=== PATIENT | female | born 1960 | race Caucasian/White ===

== ENCOUNTER 2021-08-10 03:39 | Inpatient (IN) | payer MEDICAID ==
[~2021-08-10] VITALS: Ht 162.6 cm; Wt 84.0 kg
[~2021-08-10 03:39] MED LIST: ALBUAER3 IN
[2021-08-10] MEDS ORDERED: LIDOCAINE VISCOUS 2% 15ML UD PO ONE (04:15)
[2021-08-10] MEDS ORDERED: ALUM & MAG HYDROX-SIMETH LIQ(MAALOX) 30 ML PO ONE (04:15)
[2021-08-10] MEDS ORDERED: SODIUM CHLORIDE 0.9% 1,000 ML IV ONE (04:15)
[2021-08-10] MEDS ORDERED: DONNATAL 5ml ORAL Elix (BELLADONNA ALK-PHENOBARB) PO ONE (04:15)
[2021-08-10] MEDS ORDERED: ONDANSETRON HCL 4 MG/2 ML VIAL IV ONE (04:15)
[2021-08-10] MEDS ORDERED: IOHEXOL 300 MG/ML 100ML BOTTLE IJ ONE ×2 (04:33→08:10)
[2021-08-10 04:44] LABS: Basophils # (auto) 0.1 10 ^3/uL (0-0.2); Basophils % (auto) 0.7 % (0.0-2.0); Eosinophils # (auto) 0.7 10 ^3/uL (0-0.8); Hematocrit 42.4 % (36.0-46.0); Hemoglobin 14.9 g/dL (12.2-16.2); Lymphocytes # (auto) 2.2 10 ^3/uL (0.4-5.4); Lymphocytes % (auto) 29.5 % (10.0-50.0); Mean Corpuscular Hemoglobin 30.7 pg (28.0-32.0); Mean Corpuscular Volume 87.7 fL (80.0-100.0); Monocytes # (auto) 0.4 10 ^3/uL (0-1.3); Monocytes % (auto) 5.3 % (0.0-12.0); Neutrophils # (auto) 4.2 10 ^3/uL (1.6-8.6); Neutrophils % (auto) 55.5 % (37.0-80.0); Nucleated Red Blood Cells % 0.2 %; Red Blood Cells 4.84 10^6/uL (4.0-5.20); Red Cell Distribution Width 13.2 % (11.8-14.3); White Blood Cell 7.5 10^3/uL (4.4-10.8)
[2021-08-10 06:59] LABS: Urine Bacteria FEW /hpf (None Seen); Urine Blood Negative /uL (Negative); Urine Hyaline Cast FEW /lpf (0 - 2); Urine Specific Gravity 1.012 (1.001-1.035); Urine WBC 2 /hpf (0 - 5)
[2021-08-10] MEDS ORDERED: KETOROLAC TROMETH 30 MG/ML 1ML VIAL IV ONE (07:45)
[2021-08-10 08:06] LABS: Albumin 3.4 g/dL (3.4-5.0); Calcium 8.4 mg/dL (8.5-10.1)
[2021-08-10 08:11] LABS: Bilirubin, Total 0.2 mg/dL (0.2-1.0); Total Protein 7.1 g/dL (6.4-8.2)
[2021-08-10] MEDS ORDERED: ONDANSETRON HCL 4 MG/2 ML VIAL IV PRN (12:30)
[2021-08-10] MEDS ORDERED: HYDROcodone-ACET 5/325MG TAB PO PRN (12:30)
[2021-08-10] MEDS ORDERED: ACETAMINOPHEN 325 MG TAB PO PRN (12:30)
[2021-08-10] MEDS ORDERED: NITROGLYCERIN 0.4 MG SL TAB SL PRN (12:30)
[2021-08-10] MEDS: SODIUM CHLORIDE 0.9% 1,000 ML IV SCH ×2 (12:35→21:28)
[2021-08-10 16:00] VITALS: BP 147/87
[2021-08-10 17:03] LABS: INR 0.99 (0.9-1.15)
[2021-08-10 22:00] VITALS: BP 145/67
[2021-08-11] VITALS (25 sets, daily range): BP systolic 109–161; BP diastolic 55–85
[2021-08-11 05:42] LABS: Basophils # (auto) 0 10 ^3/uL (0-0.2); Basophils % (auto) 0.5 % (0.0-2.0); Eosinophils # (auto) 0.4 10 ^3/uL (0-0.8); Eosinophils % (auto) 7.3 % (0.0-7.0); Hematocrit 41.4 % (36.0-46.0); Hemoglobin 14.3 g/dL (12.2-16.2); Lymphocytes # (auto) 1.9 10 ^3/uL (0.4-5.4); Lymphocytes % (auto) 33.3 % (10.0-50.0); Mean Corpuscular Hemoglobin 30.5 pg (28.0-32.0); Mean Corpuscular Hgb Conc. 34.6 g/dL (32.0-36.0); Monocytes # (auto) 0.3 10 ^3/uL (0-1.3); Neutrophils # (auto) 3.1 10 ^3/uL (1.6-8.6); Neutrophils % (auto) 52.9 % (37.0-80.0); Nucleated Red Blood Cells % 0.2 %; Red Cell Distribution Width 13.1 % (11.8-14.3); White Blood Cell 5.8 10^3/uL (4.4-10.8)
[2021-08-11 05:52] LABS: Potassium 4.3 mmol/L (3.5-5.1)
[2021-08-11 05:58] LABS: Albumin 3.1 g/dL (3.4-5.0); BUN/Creatinine Ratio 13.3; Calcium 8.2 mg/dL (8.5-10.1)
[2021-08-11 06:00] LABS: Bilirubin, Total 0.5 mg/dL (0.2-1.0); Total Protein 6.3 g/dL (6.4-8.2)
[2021-08-11] MEDS ORDERED: BUPIVACAINE W/ EPINEPH 0.25% INJ 50ML MDV ONE (07:46)
[2021-08-11] MEDS ORDERED: SUCCINYLCHOLINE CHLORIDE 20 MG/ML 10ML VIAL IV ONE (08:14)
[2021-08-11] MEDS ORDERED: ceFAZolin 1GM/50ML 100 ML IV ONE (08:15)
[2021-08-11] MEDS ORDERED: PROPOFOL 10 MG/ML 20 ML IV ONE (08:15)
[2021-08-11] MEDS ORDERED: fentaNYL CITRATE 100 MCG/2 ML VL ONE (08:16)
[2021-08-11] MEDS ORDERED: MIDAZOLAM HCL 2MG/2ML 2ml VIAL (1mg/ml) ONE (08:16)
[2021-08-11] MEDS ORDERED: ROCURONIUM 10MG/ML 10ML VIAL IV ONE (08:19)
[2021-08-11] MEDS: SODIUM CHLORIDE 0.9% 1,000 ML IV SCH (08:30)
[2021-08-11] MEDS ORDERED: LABETALOL HCL 5 MG/ML ML 20ML VIAL IV ONE (09:09)
[2021-08-11] MEDS ORDERED: GLYCOPYRROLATE 0.2 MG/ML 1ML VIAL ONE (09:50)
[2021-08-11] MEDS ORDERED: NEOSTIGMINE 1 MG/ML INJ (10mg/10ML VIAL) ONE (09:50)
[2021-08-11] MEDS ORDERED: ONDANSETRON HCL 4 MG/2 ML VIAL IV PRN (10:00)
[2021-08-11] MEDS ORDERED: ENOXAPARIN SOD 40 MG/0.4 ML SYRINGE SC SCH (10:00)
[2021-08-11] MEDS ORDERED: HYDROmorphone HCL 2 MG/ML VL/or syr IV PRN (10:30)
[2021-08-11] MEDS: D5W/SOD CHL 0.45%/KCL 20MEQ 1,000 ML IV SCH ×2 (11:10→18:20)
[2021-08-11] MEDS: PANTOPRAZOLE 40 MG/10 ML VIAL INJ IV SCH (11:10)
[2021-08-11] MEDS: MORPHINE SULFATE 4 MG/ML SYR/VIAL IV PRN ×2 (11:25→20:27)
[2021-08-11 11:37] LABS: Basophils # (auto) 0 10 ^3/uL (0-0.2); Basophils % (auto) 0.4 % (0.0-2.0); Eosinophils # (auto) 0.3 10 ^3/uL (0-0.8); Hematocrit 40.8 % (36.0-46.0); Hemoglobin 13.9 g/dL (12.2-16.2); Lymphocytes # (auto) 1.3 10 ^3/uL (0.4-5.4); Mean Corpuscular Hemoglobin 30.2 pg (28.0-32.0); Mean Corpuscular Hgb Conc. 34.2 g/dL (32.0-36.0); Mean Corpuscular Volume 88.3 fL (80.0-100.0); Monocytes # (auto) 0.4 10 ^3/uL (0-1.3); Monocytes % (auto) 3.7 % (0.0-12.0); Neutrophils # (auto) 7.5 10 ^3/uL (1.6-8.6); Neutrophils % (auto) 78.9 % (37.0-80.0); Nucleated Red Blood Cells % 0.1 %; Red Blood Cells 4.62 10^6/uL (4.0-5.20); Red Cell Distribution Width 13.3 % (11.8-14.3); White Blood Cell 9.5 10^3/uL (4.4-10.8)
[2021-08-11] MEDS ORDERED: ALBUTEROL SULF 2.5 MG/0.5ML(0.5%) NEB SOLN NEB PRN (13:30)
[2021-08-11] MEDS ORDERED: IPRATROPIUM BROM 0.5 MG/2.5ML INH SOL NEB PRN (13:30)
[2021-08-11] MEDS ORDERED: ALBUTEROL SULF 2.5 MG/0.5ML(0.5%) NEB SOLN ONE (13:40)
[2021-08-11] MEDS ORDERED: IPRATROPIUM BROM 0.5 MG/2.5ML INH SOL ONE (13:40)
[2021-08-11] MEDS: ALBUTEROL SULF 2.5 MG/0.5ML(0.5%) NEB SOLN NEB SCH ×3 (14:00→22:00)
[2021-08-11] MEDS: IPRATROPIUM BROM 0.5 MG/2.5ML INH SOL NEB SCH ×3 (14:00→22:00)
[2021-08-11] MEDS ORDERED: cefTRIAXone 1GM/50ML D5W 50 ML IV ONE (17:00)
[2021-08-12] VITALS (11 sets, daily range): BP systolic 111–141; BP diastolic 50–78
[2021-08-12] MEDS: MORPHINE SULFATE 4 MG/ML SYR/VIAL IV PRN ×2 (01:08→07:02)
[2021-08-12] MEDS: D5W/SOD CHL 0.45%/KCL 20MEQ 1,000 ML IV SCH ×3 (03:26→19:20)
[2021-08-12 04:56] LABS: Basophils # (auto) 0 10 ^3/uL (0-0.2); Basophils % (auto) 0.4 % (0.0-2.0); Eosinophils # (auto) 0.3 10 ^3/uL (0-0.8); Eosinophils % (auto) 4.2 % (0.0-7.0); Hematocrit 39.7 % (36.0-46.0); Hemoglobin 13.7 g/dL (12.2-16.2); Lymphocytes # (auto) 1.4 10 ^3/uL (0.4-5.4); Lymphocytes % (auto) 19.1 % (10.0-50.0); Mean Corpuscular Hemoglobin 30.6 pg (28.0-32.0); Mean Corpuscular Hgb Conc. 34.6 g/dL (32.0-36.0); Mean Corpuscular Volume 88.4 fL (80.0-100.0); Monocytes # (auto) 0.5 10 ^3/uL (0-1.3); Monocytes % (auto) 6.8 % (0.0-12.0); Neutrophils # (auto) 5.2 10 ^3/uL (1.6-8.6); Neutrophils % (auto) 69.5 % (37.0-80.0); Red Blood Cells 4.49 10^6/uL (4.0-5.20); Red Cell Distribution Width 13.1 % (11.8-14.3); White Blood Cell 7.6 10^3/uL (4.4-10.8)
[2021-08-12 05:13] LABS: Albumin 2.9 g/dL (3.4-5.0); BUN/Creatinine Ratio 8.3; Calcium 8.3 mg/dL (8.5-10.1); Magnesium 2.4 mg/dL (1.6-2.6); Potassium 5.1 mmol/L (3.5-5.1)
[2021-08-12 05:15] LABS: Bilirubin, Total 0.4 mg/dL (0.2-1.0); Total Protein 6.2 g/dL (6.4-8.2)
[2021-08-12] MEDS: IPRATROPIUM BROM 0.5 MG/2.5ML INH SOL NEB SCH ×6 (06:00→22:00)
[2021-08-12] MEDS: ALBUTEROL SULF 2.5 MG/0.5ML(0.5%) NEB SOLN NEB SCH ×6 (06:00→19:24)
[2021-08-12] MEDS: cefTRIAXone 1GM/50ML D5W 50 ML IV SCH (08:37)
[2021-08-12] MEDS: PANTOPRAZOLE 40 MG/10 ML VIAL INJ IV SCH (08:37)
[2021-08-12] MEDS ORDERED: ACETAMINOPHEN 325 MG TAB PO PRN (11:45)
[2021-08-12] MEDS: HYDROcodone-ACET 5/325MG TAB PO PRN ×2 (11:47→19:05)
[2021-08-12] MEDS ORDERED: ALPRAZolam 0.25 MG TAB PO ONE (17:30)
[2021-08-13] VITALS (7 sets, daily range): BP systolic 120–144; BP diastolic 64–78
[2021-08-13] MEDS: D5W/SOD CHL 0.45%/KCL 20MEQ 1,000 ML IV SCH (03:40)
[2021-08-13] MEDS: IPRATROPIUM BROM 0.5 MG/2.5ML INH SOL NEB SCH ×2 (05:26→09:23)
[2021-08-13] MEDS: ALBUTEROL SULF 2.5 MG/0.5ML(0.5%) NEB SOLN NEB SCH ×2 (05:26→09:23)
[2021-08-13] MEDS: HYDROcodone-ACET 5/325MG TAB PO PRN ×2 (05:58→19:56)
[2021-08-13] MEDS: PANTOPRAZOLE 40 MG/10 ML VIAL INJ IV SCH (08:54)
[2021-08-13] MEDS: cefTRIAXone 1GM/50ML D5W 50 ML IV SCH (08:54)
[2021-08-13] MEDS ORDERED: ALBUTEROL SULF 2.5 MG/0.5ML(0.5%) NEB SOLN NEB PRN (11:30)
[2021-08-13] MEDS ORDERED: IPRATROPIUM BROM 0.5 MG/2.5ML INH SOL NEB PRN (11:30)
[2021-08-13] MEDS ORDERED: ALPRAZolam 0.25 MG TAB PO PRN (14:30)
[2021-08-14] VITALS: BP 141/75
[2021-08-14 04:00] VITALS: BP 135/75
[2021-08-14 05:45] LABS: Potassium 4.5 mmol/L (3.5-5.1)
[2021-08-14 05:59] LABS: Alanine Aminotransferase 41 U/L (13-56); Albumin 2.9 g/dL (3.4-5.0); Alkaline Phosphatase 97 U/L (45-117); Aspartate Aminotransferase 27 U/L (15-37); Bilirubin, Direct < 0.1 mg/dL (0-0.2); Bilirubin, Total 0.4 mg/dL (0.2-1.0); Magnesium 2.1 mg/dL (1.6-2.6); Total Protein 6.5 g/dL (6.4-8.2)
[2021-08-14 09:00] VITALS: BP 144/86
[2021-08-14] MEDS: PANTOPRAZOLE 40 MG/10 ML VIAL INJ IV SCH (09:11)
[2021-08-14] MEDS: HYDROcodone-ACET 5/325MG TAB PO PRN (09:11)
[2021-08-14] MEDS: cefTRIAXone 1GM/50ML D5W 50 ML IV SCH (09:12)
[2021-08-14] MEDS ORDERED: LEVO500T31 PO (11:24)
== END 2021-08-14 16:55 | disposition home or self-care (01) | DRG 263 ==
LOC: ER 03:39 → OVERFLOW 12:20 → WEST WING 15:40 → ICU CENTRL 08-11 10:49 → DOU IN ICU 08-14 01:43 → TELE-WESTW 08-14 07:30
PROVIDERS: ADMIT Internal Medicine; ATTEND Internal Medicine
PROC: 0FT44ZZ Resection of Gallbladder, Percutaneous Endoscopic Approach (ICD-10-PCS; principal; 2021-08-11 08:26)
DX: K80.00 Calculus of gallbladder with acute cholecystitis without obstruction (principal); J96.00 Acute respiratory failure, unspecified whether with hypoxia or hypercapnia; K76.89 Other specified diseases of liver; E66.01 Morbid (severe) obesity due to excess calories; N39.0 Urinary tract infection, site not specified; G25.0 Essential tremor; F41.9 Anxiety disorder, unspecified; J44.9 Chronic obstructive pulmonary disease, unspecified; Z20.822 Contact with and (suspected) exposure to COVID-19; Z83.3 Family history of diabetes mellitus; Z68.31 Body mass index [BMI] 31.0-31.9, adult
CPT/HCPCS: 36415; 71045; 74177; 76705; 78226; 80053; 80076; 81001; 83690; 83735; 84132; 84484; 85025; 85610; 85730; 86850; 86900; 86901; 87081; 93005; 94640; 96361; 96374; 96375; C9113; G0378; J0330; J0690; J0696; J1885; J2250; J2405; J2704

== ENCOUNTER 2022-06-26 11:41 | Inpatient (IN) | payer MEDICAID ==
[~2022-06-26] VITALS: Ht 165.1 cm; Wt 90.0 kg
[~2022-06-26 11:41] MED LIST changes: +LEVO500T31 PO
[2022-06-26] MEDS ORDERED: DexAMETHasone SOD PHOS 10MG/1ML VIAL INJ IV ONE (13:30)
[2022-06-26] MEDS ORDERED: ALBUTEROL SULF 2.5 MG/0.5ML(0.5%) NEB SOLN NEB ONE (13:30)
[2022-06-26] MEDS ORDERED: IPRATROPIUM BROM 0.5 MG/2.5ML INH SOL NEB ONE (13:30)
[2022-06-26] MEDS ORDERED: ALBUTEROL MEDNEB 2.5 mg/3ml NEB ONE ×3 (13:44→22:10)
[2022-06-26 13:55] LABS: Basophils # (auto) 0.1 10 ^3/uL (0-0.2); Basophils % (auto) 0.6 % (0.0-2.0); Eosinophils # (auto) 0.9 10 ^3/uL (0-0.8); Eosinophils % (auto) 8.8 % (0.0-7.0); Hematocrit 46.1 % (36.0-46.0); Hemoglobin 15.7 g/dL (12.2-16.2); Lymphocytes # (auto) 2.2 10 ^3/uL (0.4-5.4); Mean Corpuscular Hemoglobin 30.2 pg (28.0-32.0); Mean Corpuscular Volume 88.8 fL (80.0-100.0); Monocytes # (auto) 0.6 10 ^3/uL (0-1.3); Monocytes % (auto) 6.1 % (0.0-12.0); Neutrophils # (auto) 6.7 10 ^3/uL (1.6-8.6); Neutrophils % (auto) 63.5 % (37.0-80.0); Nucleated Red Blood Cells % 0.1 %; Red Blood Cells 5.19 10^6/uL (4.0-5.20); Red Cell Distribution Width 13.2 % (11.8-14.3); White Blood Cell 10.6 10^3/uL (4.4-10.8)
[2022-06-26 14:11] LABS: Albumin 3.6 g/dL (3.4-5.0); BUN/Creatinine Ratio 11.6; Calcium 9.2 mg/dL (8.5-10.1); Potassium 4.7 mmol/L (3.5-5.1)
[2022-06-26 14:14] LABS: Bilirubin, Total 0.3 mg/dL (0.2-1.0); Magnesium 2.4 mg/dL (1.6-2.6); Total Protein 7.1 g/dL (6.4-8.2)
[2022-06-26] MEDS: MAGNESIUM SULFATE 1GM/100ML 100 ML IV SCH ×2 (14:30→16:01)
[2022-06-26] MEDS ORDERED: DOXYCYCLINE 100MG/250ML 250 ML IV ONE (16:15)
[2022-06-26] MEDS ORDERED: ALBUTEROL SULF 2.5 MG/0.5ML(0.5%) NEB SOLN NEB PRN (16:30)
[2022-06-26] MEDS ORDERED: PANTOPRAZOLE 40 MG/10 ML VIAL INJ IV ONE (16:45)
[2022-06-26 17:03] LABS: Cholesterol 219 mg/dL (< 200); HDL Cholesterol 43 mg/dL (40-59); LDL Cholesterol 148 mg/dL (< 100); Triglycerides 322 mg/dL (< 150)
[2022-06-26] MEDS: SODIUM CHLORIDE 0.9% 1,000 ML IV SCH (17:50)
[2022-06-26] MEDS: ALBUTEROL SULF 2.5 MG/0.5ML(0.5%) NEB SOLN NEB SCH ×3 (18:29→22:13)
[2022-06-26] MEDS: IPRATROPIUM BROM 0.5 MG/2.5ML INH SOL NEB SCH ×3 (18:29→22:12)
[2022-06-26 19:00] VITALS: BP 121/58
[2022-06-26 22:00] VITALS: BP 159/77
[2022-06-26 22:06] VITALS: BP 159/77
[2022-06-26] MEDS ORDERED: MONT-8 PO (22:17)
[2022-06-26] MEDS ORDERED: SIMV10TA84 PO (22:17)
[2022-06-26] MEDS: methylPREDNISolone SOD SUCC 125 MG/2 ML VL IV SCH (22:19)
[2022-06-26] MEDS ORDERED: ALBU0.084 NEB (22:29)
[2022-06-27] MEDS: ALBUTEROL SULF 2.5 MG/0.5ML(0.5%) NEB SOLN NEB SCH ×8 (02:00→22:00)
[2022-06-27] MEDS: IPRATROPIUM BROM 0.5 MG/2.5ML INH SOL NEB SCH ×8 (02:00→22:00)
[2022-06-27] MEDS: DOXYCYCLINE 100MG/250ML 250 ML IV SCH ×2 (04:16→16:26)
[2022-06-27 05:00] VITALS: BP 136/72
[2022-06-27] MEDS ORDERED: ALBUTEROL MEDNEB 2.5 mg/3ml NEB ONE ×5 (05:43→22:21)
[2022-06-27 06:21] LABS: Basophils # (auto) 0 10 ^3/uL (0-0.2); Eosinophils # (auto) 0 10 ^3/uL (0-0.8); Hematocrit 46.9 % (36.0-46.0); Hemoglobin 15.7 g/dL (12.2-16.2); Lymphocytes # (auto) 1.4 10 ^3/uL (0.4-5.4); Lymphocytes % (auto) 11.4 % (10.0-50.0); Mean Corpuscular Hemoglobin 29.9 pg (28.0-32.0); Mean Corpuscular Hgb Conc. 33.4 g/dL (32.0-36.0); Mean Corpuscular Volume 89.4 fL (80.0-100.0); Monocytes # (auto) 0.1 10 ^3/uL (0-1.3); Neutrophils # (auto) 10.4 10 ^3/uL (1.6-8.6); Neutrophils % (auto) 87.6 % (37.0-80.0); Red Blood Cells 5.25 10^6/uL (4.0-5.20); Red Cell Distribution Width 13.4 % (11.8-14.3); White Blood Cell 11.9 10^3/uL (4.4-10.8)
[2022-06-27 06:35] LABS: Potassium 4.5 mmol/L (3.5-5.1)
[2022-06-27 06:41] LABS: Albumin 3.5 g/dL (3.4-5.0); BUN/Creatinine Ratio 10.1; Calcium 9.6 mg/dL (8.5-10.1)
[2022-06-27 06:43] LABS: Bilirubin, Total 0.3 mg/dL (0.2-1.0); Total Protein 7.7 g/dL (6.4-8.2)
[2022-06-27 08:00] VITALS: BP 148/74
[2022-06-27] MEDS: SODIUM CHLORIDE 0.9% 1,000 ML IV SCH (09:10)
[2022-06-27] MEDS: ENOXAPARIN SOD 40 MG/0.4 ML SYRINGE SC SCH (09:21)
[2022-06-27] MEDS: PANTOPRAZOLE 40 MG/10 ML VIAL INJ IV SCH (09:21)
[2022-06-27] MEDS: methylPREDNISolone SOD SUCC 125 MG/2 ML VL IV SCH ×2 (09:21→21:46)
[2022-06-27] MEDS ORDERED: ACETAMINOPHEN 325 MG TAB PO PRN (11:15)
[2022-06-27 13:00] VITALS: BP 139/82
[2022-06-27] MEDS: HYDROcodone-ACET 5/325MG TAB PO PRN ×2 (14:54→19:34)
[2022-06-27 17:00] VITALS: BP 153/80
[2022-06-27 20:00] VITALS: BP 149/85
[2022-06-27 22:00] VITALS: BP 149/85
[2022-06-28] VITALS (7 sets, daily range): BP systolic 119–150; BP diastolic 64–94
[2022-06-28] MEDS: IPRATROPIUM BROM 0.5 MG/2.5ML INH SOL NEB SCH ×6 (02:00→21:38)
[2022-06-28] MEDS: ALBUTEROL SULF 2.5 MG/0.5ML(0.5%) NEB SOLN NEB SCH ×6 (02:00→21:38)
[2022-06-28] MEDS: SODIUM CHLORIDE 0.9% 1,000 ML IV SCH ×2 (04:06→11:01)
[2022-06-28] MEDS: DOXYCYCLINE 100MG/250ML 250 ML IV SCH ×2 (04:07→16:28)
[2022-06-28] MEDS ORDERED: ALBUTEROL MEDNEB 2.5 mg/3ml NEB ONE ×5 (06:09→21:36)
[2022-06-28] MEDS: PANTOPRAZOLE 40 MG/10 ML VIAL INJ IV SCH (11:02)
[2022-06-28] MEDS: ENOXAPARIN SOD 40 MG/0.4 ML SYRINGE SC SCH (11:02)
[2022-06-28] MEDS: methylPREDNISolone SOD SUCC 125 MG/2 ML VL IV SCH ×2 (11:02→21:33)
[2022-06-29] MEDS ORDERED: ALBUTEROL MEDNEB 2.5 mg/3ml NEB ONE ×5 (02:04→17:50)
[2022-06-29] MEDS: ALBUTEROL SULF 2.5 MG/0.5ML(0.5%) NEB SOLN NEB SCH ×5 (02:08→14:14)
[2022-06-29] MEDS: IPRATROPIUM BROM 0.5 MG/2.5ML INH SOL NEB SCH ×5 (02:08→14:14)
[2022-06-29] MEDS: DOXYCYCLINE 100MG/250ML 250 ML IV SCH (04:56)
[2022-06-29] MEDS: HYDROcodone-ACET 5/325MG TAB PO PRN ×2 (04:56→11:08)
[2022-06-29 05:00] VITALS: BP 170/101
[2022-06-29] MEDS ORDERED: hydrALAZINE HCL 20 MG/ML VL IV PRN (05:15)
[2022-06-29] MEDS ORDERED: MORPHINE SULFATE INJ 2 MG/ml SYRG IV PRN (05:15)
[2022-06-29 07:45] LABS: Albumin 3.4 g/dL (3.4-5.0); Calcium 8.8 mg/dL (8.5-10.1); Potassium 4.9 mmol/L (3.5-5.1)
[2022-06-29 07:48] LABS: BUN/Creatinine Ratio 19.8; Bilirubin, Total 0.4 mg/dL (0.2-1.0)
[2022-06-29 08:08] LABS: INR 0.95 (0.9-1.15)
[2022-06-29 09:29] VITALS: BP 143/91
[2022-06-29] MEDS ORDERED: methylPREDNISolone SOD SUCC 125 MG/2 ML VL IV SCH (10:00)
[2022-06-29] MEDS ORDERED: hydrALAZINE HCL 20 MG/ML VL IV ONE (10:30)
[2022-06-29] MEDS: ENOXAPARIN SOD 40 MG/0.4 ML SYRINGE SC SCH (11:06)
[2022-06-29] MEDS: PANTOPRAZOLE 40 MG/10 ML VIAL INJ IV SCH (11:07)
[2022-06-29] MEDS: SODIUM CHLORIDE 0.9% 1,000 ML IV SCH (11:08)
[2022-06-29 13:01] VITALS: BP 142/84
[2022-06-29] MEDS ORDERED: AZIT250T8 PO (13:24)
== END 2022-06-29 17:30 | disposition home or self-care (01) | DRG 140 ==
LOC: ER 11:41 → EDBD 11:41 → OVERFLOW 16:37 → CENTRAL 21:32
PROVIDERS: ADMIT Nurse Practitioner Family; ATTEND Internal Medicine
DX: J44.1 Chronic obstructive pulmonary disease with (acute) exacerbation (principal); J96.01 Acute respiratory failure with hypoxia; J45.901 Unspecified asthma with (acute) exacerbation; E66.01 Morbid (severe) obesity due to excess calories; Z20.822 Contact with and (suspected) exposure to COVID-19; Z83.3 Family history of diabetes mellitus; Z68.33 Body mass index [BMI] 33.0-33.9, adult
CPT/HCPCS: 36415; 71045; 80053; 80061; 83036; 83615; 83735; 83880; 84443; 84484; 85025; 85379; 85610; 87426; 93005; 94640; 96365; 96375; 99291; C9113; G0378; J1100; J3490

== ENCOUNTER 2024-07-31 16:09 | Inpatient (IN) | payer MEDICAID ==
[~2024-07-31] VITALS: Ht 160 cm; Wt 84.3 kg
[~2024-07-31 16:09] MED LIST changes: +ALBU0.084 NEB; +AZIT-185 PO; -LEVO500T31 PO; +MONT-8 PO; +SIMV10TA20 PO
--- NOTE | 2024-07-31 16:20 | ED.PDOC ---
SOB-HPI HPI Comments 64-year-old female brought in by EMS presents with a chief complaint of SOB x 1 day with associated cough. Patient states that she began to feel SOB starting last night when she began coughing spontaneously. Patient denies any sick contacts at home. Patient was sating at 91% on room air and took 2 breathing treatments at home and states that she had no relief. Patient was placed on dual nebulizer treatment by EMS and is now sating at 98%. Patient is afebrile at 98.0F orally. Patient denies any chest pain, headache, abdomen pain, nausea, vomiting, or diarrhea. No other symptoms or modifying factors present at this time. PMHx: COPD, Asthma, HLD, Thyroid Disease, PSHx: Denies HPI: Poor Historian. REVIEW OF SYSTEMS: CONSTITUTIONAL: Denies acute: fever, diaphoresis, chills, generalized weakness. HEAD: Denies acute: headache, photophobia Eyes: Denies acute: Double vision, vision loss, eye pain, eye discharge. EARS: Denies acute: tinnitus, hearing loss, ear discharge, ear pain, THROAT: Denies acute: sore throat, swelling, difficulty swallowing , pain with swallowin g, change in voice. NECK: Denies acute: neck pain, neck swelling, stiff neck. HEART: Denies acute : chest pain, palpitations, LUNGS: Denies acute: wheezing, cough, hemoptysis ABDOMEN: Denies acute: abdominal pain, Nausea, Vomiting, diarrhea, melena , hematemesis, hematochezia SKIN: Denies acute: rash, redness, lesions, itchiness. EXTREMITIES: Denies acute: calf pain, numbness, tingling, weakness, Denies acute: Low back pain. Neuro: Denies acute: focal neurological deficit, motor or sensory focal neurological deficit, tremors, seizure like activity, confusion, dizziness, change in mental status, loss of bowel or bladder function, cauda equina like symptoms. : Denies acute: dysuria, hematuria, flank pain, increase in urinary frequency. PSYCH: Denies acute: hallucination, suicidal ideation, homicidal ideation. FEMALE: Denies acute: abnormal vaginal bleeding, foul odor, unusual discharge. PHYSICAL EXAM: General: no acute distress, awake and alert. Head: normocephalic, atraumatic. Neck: supple, trachea is midline, no swelling. Throat: Normal phonation. Eyes:, no erythema, no purulent discharge, no proptosis, no icterus. Heart: regular tachycardia no significant murmur appreciated. Lungs: mild to mod apparent respiratory distress, Able to speak in full sentences. No wheezing, no rhonchi, no crackles. No stridors Clear to auscultation bilaterally. Abdomen: non tender to palpation, non distended, soft, no guarding, no rebound, + bowel sounds. obese Neuro: Awake, Alert, oriented to name, self, situation, follows commands GCS=15. Speech is normal. Skin: no petechia, no purpura, no cyanosis, non-pale, not jaundice. Lower extremities: --1/4 b/l - Pitting edema no deformity, no focal swelling, no calf TTP. Makes eye contact. moves all four extremities. Face: no apparent facial droop. ED COURSE: Chief Complaint: Shortness of Breath Time Seen by MD: 16:14 Primary Care Provider: UNKNOWN Reviewed notes: Nurses Notes, Medications, Allergies Information Source: Patient, Emergency Med Personnel Mode of Arrival: EMS Past Medical History PAST MEDICAL HISTORY: Asthma, COPD, High Lipids, Thyroid Surgical History: Denies all surgeries HOUSE MANAGER History: No Pertinent HOUSE MANAGER History Family History Family History: Unknown Social History Smoker: Quit Greater Than 1 Year, Cigarettes Alcohol: Denies ETOH Use Drugs: Denies Drug Use Lives In: Home Was a procedure done? Was a procedure done?: No Differential Dx Differential Diagnosis: Other (DDx include ACS, unstable angina, anxiety, PE, pneumothroax, neoplasm, cardiac ischemia, COPD, asthma, CHF, pleural effusion, tobacco abuse, pneumonia, hypoxia, hypercapnia, anemia., infection/sepsis., pulmonary edema. Asthma, Cardiac tamponade, infection.) X-Ray, Labs, Meds, VS Vital Signs Date Time Temp Pulse Resp B/P (MAP) Pulse Ox O2 Delivery O2 Flow Rate FiO2 07/31/24 18:51 188/102 07/31/24 18:24 171/96 07/31/24 17:31 110 180/103 Facial BiPAP Mask 100 07/31/24 17:24 180/103 07/31/24 17:23 180/103 07/31/24 16:40 98.9 109 28 172/94 (120) 98 98.9 07/31/24 16:40 109 28 98 Simple Mask* 6 50 07/31/24 16:39 107 07/31/24 16:20 22 98 Simple Mask* 6 50 07/31/24 16:16 98.0 115 22 179/69 (105) 98 98.0 Lab Test 07/31/24 18:47 07/31/24 18:17 07/31/24 17:17 07/31/24 17:00 Range/Units Lactic Acid Level 4.3 *H 3.2 *H 0.4-2.0 mmol/L Troponin I High Sensitivity 5 4 </=34 ng/L D-Dimer, Quantitative 0.54 H 0.0-0.49 mg/L FEU Sodium Level 144 136-145 mmol/L Potassium Level 3.8 3.5-5.1 mmol/L Chloride Level 109 H 98-107 mmol/L Carbon Dioxide Level 25 20-31 mmol/L Anion Gap 10 5-15 Blood Urea Nitrogen 8 L 9-23 mg/dL Creatinine 0.91 0.550-1.02 mg/dL Glomerular Filtration Rate Calc 71 >90 mL/min BUN/Creatinine Ratio 8.8 L 10.0-20.0 Serum Glucose 173 H 74-106 mg/dL Calcium Level 9.3 8.7-10.4 mg/dL Magnesium Level 1.9 1.6-2.6 mg/dL Total Bilirubin 0.3 0.2-1.0 mg/dL Aspartate Amino Transferase (AST) 28 13-40 U/L Alanine Aminotransferase (ALT) 32 7-40 U/L Alkaline Phosphatase 118 H 46-116 U/L B-Type Natriuretic Peptide 44.65 0-100 pg/mL Total Protein 6.9 5.7-8.2 g/dL Albumin 4.4 3.2-4.8 g/dL Triglycerides Level 327 H < 150 mg/dL Cholesterol Level 189 < 200 mg/dL LDL Cholesterol 115 H < 100 mg/dL HDL Cholesterol 42 40-59 mg/dL Thyroid Stimulating Hormone (TSH) 5.15 H 0.55-4.78 uIU/mL Influenza Type A Antigen Negative Negative Influenza Type B Antigen Negative Negative SARS-CoV-2 Antigen (Rapid) Negative NEGATIVE Test 07/31/24 16:29 07/31/24 16:19 07/30/24 05:29 Range/Units Urine Color Colorless Yellow Urine Clarity Clear Clear Urine pH 5.5 5.0-9.0 Urine Specific [place] 1.009 1.001-1.035 Urine Protein Negative Negative Urine Ketones Negative Negative Urine Blood Negative Negative /uL Urine Nitrite Negative Negative Urine Bilirubin Negative Negative Urine Urobilinogen Normal Negative mg/dL Urine Leukocyte Esterase Negative Negative /uL Urine RBC <1 0 - 4 /hpf Urine Microscopic WBC < 1 0-5 /HPF Urine Squamous Epithelial Cells Few <5 /hpf Urine Bacteria None seen None Seen /hpf Urine Glucose Normal Normal mg/dL White Blood Count 12.8 H 4.4-10.8 10^3/uL Red Blood Count 4.96 4.0-5.20 10^6/uL Hemoglobin 14.5 12.2-16.2 g/dL Hematocrit 43.4 36.0-46.0 % Mean Corpuscular Volume 87.5 80.0-100.0 fL Mean Corpuscular Hemoglobin 29.2 28.0-32.0 pg Mean Corpuscular Hemoglobin Concent 33.4 32.0-36.0 g/dL Red Cell Distribution Width 13.2 11.8-14.3 % Platelet Count 271 140-450 10^3/uL Mean Platelet Volume 7.7 6.9-10.8 fL Neutrophils (%) (Auto) 76.9 37.0-80.0 % Lymphocytes (%) (Auto) 13.2 10.0-50.0 % Monocytes (%) (Auto) 6.2 0.0-12.0 % Eosinophils (%) (Auto) 3.2 0.0-7.0 % Basophils (%) (Auto) 0.5 0.0-2.0 % Neutrophils # (Auto) 9.8 H 1.6-8.6 10 ^3/uL Lymphocytes # (Auto) 1.7 0.4-5.4 10 ^3/uL Monocytes # (Auto) 0.8 0-1.3 10 ^3/uL Eosinophils # (Auto) 0.4 0-0.8 10 ^3/uL Basophils # (Auto) 0.1 0-0.2 10 ^3/uL Nucleated Red Blood Cells 0.0 % Blood Gas Specimen Type Arterial Blood Gas Sample Site Right radial Blood Gas Patient Temperature 37.0 Arterial Blood Date Drawn [id number] Arterial Blood pH 7.337 L 7.350-7.450 Arterial Blood Partial Pressure CO2 37.2 32.0-45.0 mmHg Arterial Blood Partial Pressure O2 72.6 L 83.0-108.0 mmHg Arterial Blood HCO3 19.5 L 21.0-28.0 mmol/L Arterial Blood Oxygen Saturation 94.6 94.0-98.0 % Arterial Blood Base Excess -5.6 L -2.0-3.0 mmol/L Arterial Blood Oxyhemoglobin 93.3 L 94.0-98.0 % Arterial Blood Carboxyhemoglobin 1.0 0.5-1.5 % Arterial Blood Methemoglobin 0.4 0.0-1.5 % Bruno Test Yes Blood Gas Total Hemoglobin 15.10 12.0-16.0 g/dL Blood Gas Modality Nasal cannula FiO2 % 28.0 Blood Gas Notified Time [id number] Current Medications Medications (Trade) Dose Ordered Sig/Rafi Route Start Time Stop Time Status Last Admin Methylprednisolone Sodium Succinate (Solu Medrol) 125 mg ONCE ONCE IV 07/31/24 16:30 07/31/24 16:31 DC 07/31/24 16:58 Albuterol (Ventolin Medneb) 2.5 mg ONCE ONCE NEB 07/31/24 17:15 07/31/24 17:16 DC 07/31/24 17:15 Ipratropium [place] (Atrovent Medneb) 1 mg ONCE ONCE NEB 07/31/24 17:15 07/31/24 17:16 DC 07/31/24 17:15 Magnesium Sulfate/ Dextrose 100 ml @ 100 mls/hr ONCE ONCE IV 07/31/24 17:15 07/31/24 18:14 DC 07/31/24 17:09 Furosemide (Lasix Injection) 60 mg ONCE ONCE IV 07/31/24 17:15 07/31/24 17:16 DC 07/31/24 17:24 Nitroglycerin (Ntrostat Sublingual) 0.4 mg ONCE ONCE SL 07/31/24 17:15 07/31/24 17:16 DC 07/31/24 17:23 Albuterol (Ventolin Medneb) 2.5 mg Q4HR NEB 07/31/24 18:00 07/31/24 18:03 Ipratropium [place] (Atrovent Medneb) 0.5 mg Q4HR NEB 07/31/24 18:00 07/31/24 18:03 Ceftriaxone Sodium 50 ml @ 100 mls/hr ONCE ONCE IV 07/31/24 18:45 07/31/24 19:14 DC 07/31/24 18:51 Nitroglycerin (Ntrostat Sublingual) 0.4 mg ONCE ONCE SL 07/31/24 19:00 07/31/24 19:01 DC 07/31/24 18:51 PATIENT: SHAMAR BERGCCT: [id number]: [id number] : 1960 LOC: ER ROOM / BED: / AGE / SEX: 64 / F ADM STATUS: REG ER SERVICE [id number] ORDERING PHYSICIAN: RICA KIM DO PROCEDURE(s): CXRP - CHEST PORTABLE REASON: sob ORDER NUMBER(s): [id number], ACCESSION NUMBER(s): [id number] CHEST RADIOGRAPH Indication: sob Technique: Single frontal view of the chest was obtained Comparison: CHEST PORTABLE on DOS: 06/26/22, CXRP on DOS: 06/26/22, CXR1 on DOS: 08/11/21 FINDINGS: Lines and Tubes: None Lungs: No focal consolidation. Slight increased pulmonary vascular congestion w hen compared to 06/26/2022 Pleura: No effusion. No pneumothorax. Cardiomediastinal contours: Unremarkable Bones: No acute osseous abnormality. IMPRESSION: 1. Slight increased pulmonary vascular congestion when compared to 06/25/2022. ATED BY: DARIEN BORREGO Jr., DO DICTATED DATE/TIME: 07/31/241639 SIGNED BY: DARIEN BORREGO Jr., SIGNED DATE/TIME: 07/31/241639 PATIENT: SOLIS BERG ACCT: [id number] UNIT: [id number] : 1960 LOC: ER ROOM / BED: / AGE / SEX: 64 / F ADM STATUS: REG ER SERVICE [id number] ORDERING PHYSICIAN: CRISTIANE DAVID HAND PATTERN MARKER PROCEDURE(s): BLDVT - BiLat Lower DVT REASON: dvt ORDER NUMBER(s): [id number], ACCESSION NUMBER(s): [id number] Bilateral lower extremity venous duplex Clinical History: dvt Comparison: None Technique: Duplex Doppler evaluation of the deep venous systems of both lower extremities from the common femoral veins to the popliteal veins including color Doppler and spectral/pulsed waveform analysis was performed. Findings: RIGHT SIDE: The common femoral vein demonstrates appropriate compressibility and waveform variability. There is compressibility/patency of the great saphenous vein at the proximal thigh. The femoral vein demonstrates appropriate compressibility and waveform variability. The deep femoral vein demonstrates appropriate compressibility and waveform variability. The popliteal vein demonstrates appropriate compressibility and waveform variability. There is normal compressibility at the tibioperoneal trunk. LEFT SIDE: The common femoral vein demonstrates appropriate compressibility and waveform variability. There is compressibility/patency of the great saphenous vein at the proximal thigh. The femoral vein demonstrates appropriate compressibility and waveform variability. The deep femoral vein demonstrates appropriate compressibility and waveform variability. The popliteal vein demonstrates appropriate compressibility and waveform variability. There is normal compressibility at the tibioperoneal trunk. Impression: 1. No right or left femoropopliteal venous thrombosis. ATED BY: HOLLEY DAVIS MD DICTATED DATE/TIME: 07/31/241944 SIGNED BY: HOLLEY DAVIS MD SIGNED DATE/TIME: 07/31/241944 Time of 1ST Reevaluation: 16:44 Reevaluation 1ST: Unchanged Patient Education/Counseling: Diagnosis, Treatment Family Education/Counseling: No Family Present Comments Sepsis protocol initiated. Fluid resuscitation was conservative given the patient's presentation with a suspected pulmonary edema and volume overload. The patient was placed on a BiPAP and given Lasix. Patient presented with the above HPI.------workup was initiated. patient was found with the above mentioned diagnosis. the following medications were ordered: please refer to order lists of meds and tests obtained by myself Dr. Kim. Patient ED course and VS have been stabilized. Patient has been reassessed in the ED and remained in a stable condition. Pertinent incidental findings were discussed with the patient and/or family. Patient/family voices understanding and is agreeable with plan. Patient has been observed in the ED adequate length of time to insure improvement/stability. Escalation of care considered: Consideration of escalation to observation or admission Patient was ADMITTED to the medicine team for further evaluation and treatment of their presentation. All the reports of any imaging studies that were ordered by myself were reviewed by myself. Departure 1 Departure Time of Disposition: 17:05 Impression: Primary Impression: Acute respiratory distress Additional Impression: Pulmonary edema Disposition: ADMITTED INPATIENT Admit to: Tele Condition: Guarded Discharged With: Self Critical Care Note Critical Care Time?: Yes (55 min-critical care time only) I personally scribed for RICA KIM DO ([email or web address]) on 07/31/24 at 16:20. Electronically submitted by Benjamin Lozada ([email or web address]). I personally scribed for RICA KIM DO ([email or web address]) on 07/31/24 at 21:08. Electronically submitted by Benjamin Lozada ([email or web address]). RICA KIM DO Jul 31, 2024 16:20
[2024-07-31 16:40] VITALS: PULSE 109; RESP 28; O2SAT 98
--- NOTE | 2024-07-31 16:42 | DVH ---
CHEST RADIOGRAPH Indication: sob Technique: Single frontal view of the chest was obtained Comparison: CHEST PORTABLE on DOS: 06/26/22, CXRP on DOS: 06/26/22, CXR1 on DOS: 08/11/21 FINDINGS: Lines and Tubes: None Lungs: No focal consolidation. Slight increased pulmonary vascular congestion when compared to 2022 Pleura: No effusion. No pneumothorax. Cardiomediastinal contours: Unremarkable Bones: No acute osseous abnormality. IMPRESSION: 1. Slight increased pulmonary vascular congestion when compared to 06/25/2022.
[2024-07-31] MEDS: methylPREDNISolone SOD SUCC 125 MG/2 ML VL IV ONE (16:58)
[2024-07-31] MEDS: MAGNESIUM SULFATE 1GM/100ML 100 ML IV ONE (17:09)
[2024-07-31] MEDS: ALBUTEROL SULF 2.5 MG/0.5ML(0.5%) NEB SOLN NEB ONE ×2 (17:15→21:49)
[2024-07-31] MEDS: IPRATROPIUM BROM 0.5 MG/2.5ML INH SOL NEB ONE ×2 (17:15→21:49)
[2024-07-31] MEDS: NITROGLYCERIN 0.4 MG SL TAB SL ONE ×2 (17:23→18:51)
[2024-07-31] MEDS: FUROSEMIDE 100 MG/10ML VIAL IV ONE (17:24)
[2024-07-31 17:29] LABS: Basophils # (auto) 0.1 10 ^3/uL (0-0.2); Basophils % (auto) 0.5 % (0.0-2.0); Eosinophils # (auto) 0.4 10 ^3/uL (0-0.8); Eosinophils % (auto) 3.2 % (0.0-7.0); Hematocrit 43.4 % (36.0-46.0); Hemoglobin 14.5 g/dL (12.2-16.2); Lymphocytes # (auto) 1.7 10 ^3/uL (0.4-5.4); Lymphocytes % (auto) 13.2 % (10.0-50.0); Mean Corpuscular Hemoglobin 29.2 pg (28.0-32.0); Mean Corpuscular Hgb Conc. 33.4 g/dL (32.0-36.0); Mean Corpuscular Volume 87.5 fL (80.0-100.0); Monocytes # (auto) 0.8 10 ^3/uL (0-1.3); Monocytes % (auto) 6.2 % (0.0-12.0); Neutrophils # (auto) 9.8 10 ^3/uL (1.6-8.6); Neutrophils % (auto) 76.9 % (37.0-80.0); Platelet Count (auto) 271 10^3/uL (140-450); Red Blood Cells 4.96 10^6/uL (4.0-5.20); Red Cell Distribution Width 13.2 % (11.8-14.3); White Blood Cell 12.8 10^3/uL (4.4-10.8)
[2024-07-31] MEDS ORDERED: ALBUTEROL SULF 2.5 MG/0.5ML(0.5%) NEB SOLN NEB PRN (17:45)
[2024-07-31] MEDS ORDERED: hydrALAZINE HCL 20 MG/ML VL IV PRN (17:45)
[2024-07-31 18:02] LABS: Base Excess -5.6 mmol/L (-2.0-3.0)
[2024-07-31] MEDS: IPRATROPIUM BROM 0.5 MG/2.5ML INH SOL NEB SCH (18:03)
[2024-07-31] MEDS: ALBUTEROL SULF 2.5 MG/0.5ML(0.5%) NEB SOLN NEB SCH (18:03)
[2024-07-31 18:09] LABS: Alanine Aminotransferase 32 U/L (7-40); Albumin 4.4 g/dL (3.2-4.8); Anion Gap 10 (5-15); Aspartate Aminotransferase 28 U/L (13-40); BUN/Creatinine Ratio 8.8 (10.0-20.0); Bilirubin, Total 0.3 mg/dL (0.2-1.0); Calcium 9.3 mg/dL (8.7-10.4); Carbon Dioxide 25 mmol/L (20-31); Magnesium 1.9 mg/dL (1.6-2.6); Potassium 3.8 mmol/L (3.5-5.1); Sodium 144 mmol/L (136-145); Total Protein 6.9 g/dL (5.7-8.2)
[2024-07-31 18:14] LABS: Alkaline Phosphatase 118 U/L (46-116); Blood Urea Nitrogen 8 mg/dL (9-23); Chloride 109 mmol/L (98-107); Glucose 173 mg/dL (74-106)
[2024-07-31] MEDS ORDERED: ONDANSETRON HCL 4 MG/2 ML VIAL IV PRN (18:15)
[2024-07-31] MEDS ORDERED: NITROGLYCERIN 0.4 MG SL TAB SL PRN (18:15)
[2024-07-31] MEDS ORDERED: MORPHINE SULFATE INJ 2 MG/ml SYRG IV PRN (18:15)
[2024-07-31 18:16] LABS: Lactic Acid w/Reflex 3.2 mmol/L (0.4-2.0)
[2024-07-31 18:26] LABS: Cholesterol 189 mg/dL (< 200); HDL Cholesterol 42 mg/dL (40-59); LDL Cholesterol 115 mg/dL (< 100); Triglycerides 327 mg/dL (< 150)
[2024-07-31 18:29] LABS: Urine Bacteria None Seen /hpf (None Seen)
[2024-07-31 18:31] LABS: COVID19 ANTIGEN SOFIA FIA NEGATIVE (NEGATIVE)
[2024-07-31 18:32] LABS: Urine Blood Negative /uL (Negative); Urine Clarity Clear (Clear); Urine Color Colorless (Yellow); Urine Protein, UAD Negative (Negative); Urine Specific Gravity 1.009 (1.001-1.035); Urine Squamous Epithelial Cell FEW /hpf (<5); Urine Urobilinogen Normal (Negative); Urine WBC < 1 /HPF (0-5); Urine pH 5.5 (5.0-9.0)
[2024-07-31 18:32] LABS: Rapid Influenza A Negative (Negative); Rapid Influenza B Negative (Negative)
[2024-07-31] MEDS: cefTRIAXone 1GM/50ML D5W 50 ML IV ONE (18:51)
--- NOTE | 2024-07-31 19:07 | DVHHP2 ---
History of Present Illness Reason for Visit: Acute hypoxic respiratory failure History of Present Illness This is a 64-year-old female with history of asthma presents to ED via EMS with chief complaint of shortness of breath associated with malaise and cough x1 day. The patient took two breathing treatments at home that did not give her any relief. The patient denies any sick contacts at home and has not recently traveled out of the [place] Upon evaluation of patient in ER bed six, patient is currently on BiPAP as her SpO2 was down to 91%. The patient received IV Solu- Medrol, Lasix and DuoNeb treatment with some relief. The patient is concerned about her shortness of breath episode and would like to be further evaluated and treated. The patient will be admitted under hospitalist care to the telemetry unit for continuous monitoring. The patient denies fever, chills, headache, dizziness, palpitation, chest pain, nausea, vomiting, abdominal pain, diarrhea, constipation and other associated symptoms. The plan has been discussed with the patient and primary RN in which all questions concerns have been addressed. Pulmonary: Asthma Past Surgical History: None Family History: None Smoke: No ALCOHOL: none Drugs: None Lives: with Family Domestic Violence: Neg Review of Systems Constitutional: Yes: Weakness Respiratory: Cough, Shortness of breath Allergies: Coded Allergies: NO KNOWN ALLERGIES (Unverified , 07/09/13) Medications Current Medications Medications Dose Ordered Sig/Rafi Route Start Time Stop Time Status Last Admin Dose Admin Albuterol 2.5 mg Q2HPRN PRN NEB 07/31/24 17:45 Albuterol 2.5 mg Q4HR NEB 07/31/24 18:00 07/31/24 18:03 2.5 MG Ipratropium [place] 0.5 mg Q4HR NEB 07/31/24 18:00 07/31/24 18:03 0.5 MG Methylprednisolone Sodium Succinate 40 mg DAILY IV 08/01/24 10:00 Hydralazine HCl 10 mg Q6HP PRN IV 07/31/24 17:45 Furosemide 20 mg DAILY IV 08/01/24 10:00 Exam Vital Signs Vital Signs Date Time Temp Pulse Resp B/P (MAP) Pulse Ox O2 Delivery O2 Flow Rate FiO2 07/31/24 17:31 110 180/103 Facial BiPAP Mask 100 07/31/24 16:20 22 98 6 07/31/24 16:16 98.0 98.0 General Appearance: Alert, Oriented X3, Cooperative, mild distress HEENT: Atraumatic, PERRLA, Mucous membr. moist/pink Respiratory: Other (Wheezing to upper and lower lung stoner) Cardiovascular: Normal S1, Normal S2, No murmurs Abdominal: Normal bowel sounds, Soft, No tenderness, No hepatospenomegaly, No masses Extremities: No clubbing, No cyanosis, No edema, Normal pulses, No tenderness/swelling Skin: No rashes, No breakdown Neuro: Normal gait, Normal speech, Strength at 5/5 X4 ext, Normal tone, Sensa tion intact, Cranial nerves 3-12 NL, Reflexes 2+ Psych/Mental Status: Mental status NL Labs/Xrays Labs Test 07/31/24 17:17 07/31/24 17:00 07/31/24 16:29 07/31/24 16:19 Range/Units D-Dimer, Quantitative 0.54 H 0.0-0.49 mg/L FEU Sodium Level 144 136-145 mmol/L Potassium Level 3.8 3.5-5.1 mmol/L Chloride Level 109 H 98-107 mmol/L Carbon Dioxide Level 25 20-31 mmol/L Anion Gap 10 5-15 Blood Urea Nitrogen 8 L 9-23 mg/dL Creatinine 0.91 0.550-1.02 mg/dL Glomerular Filtration Rate Calc 71 >90 mL/min BUN/Creatinine Ratio 8.8 L 10.0-20.0 Serum Glucose 173 H 74-106 mg/dL Lactic Acid Level 3.2 *H 0.4-2.0 mmol/L Calcium Level 9.3 8.7-10.4 mg/dL Magnesium Level 1.9 1.6-2.6 mg/dL Total Bilirubin 0.3 0.2-1.0 mg/dL Aspartate Amino Transferase (AST) 28 13-40 U/L Alanine Aminotransferase (ALT) 32 7-40 U/L Alkaline Phosphatase 118 H 46-116 U/L Troponin I High Sensitivity 4 </=34 ng/L B-Type Natriuretic Peptide 44.65 0-100 pg/mL Total Protein 6.9 5.7-8.2 g/dL Albumin 4.4 3.2-4.8 g/dL Triglycerides Level 327 H < 150 mg/dL Cholesterol Level 189 < 200 mg/dL LDL Cholesterol 115 H < 100 mg/dL HDL Cholesterol 42 40-59 mg/dL Thyroid Stimulating Hormone (TSH) 5.15 H 0.55-4.78 uIU/mL Influenza Type A Antigen Negative Negative Influenza Type B Antigen Negative Negative SARS-CoV-2 Antigen (Rapid) Negative NEGATIVE Urine Color Colorless Yellow Urine Clarity Clear Clear Urine pH 5.5 5.0-9.0 Urine Specific [place] 1.009 1.001-1.035 Urine Protein Negative Negative Urine Ketones Negative Negative Urine Blood Negative Negative /uL Urine Nitrite Negative Negative Urine Bilirubin Negative Negative Urine Urobilinogen Normal Negative mg/dL Urine Leukocyte Esterase Negative Negative /uL Urine RBC <1 0 - 4 /hpf Urine Microscopic WBC < 1 0-5 /HPF Urine Squamous Epithelial Cells Few <5 /hpf Urine Bacteria None seen None Seen /hpf Urine Glucose Normal Normal mg/dL White Blood Count 12.8 H 4.4-10.8 10^3/uL Red Blood Count 4.96 4.0-5.20 10^6/uL Hemoglobin 14.5 12.2-16.2 g/dL Hematocrit 43.4 36.0-46.0 % Mean Corpuscular Volume 87.5 80.0-100.0 fL Mean Corpuscular Hemoglobin 29.2 28.0-32.0 pg Mean Corpuscular Hemoglobin Concent 33.4 32.0-36.0 g/dL Red Cell Distribution Width 13.2 11.8-14.3 % Platelet Count 271 140-450 10^3/uL Mean Platelet Volume 7.7 6.9-10.8 fL Neutrophils (%) (Auto) 76.9 37.0-80.0 % Lymphocytes (%) (Auto) 13.2 10.0-50.0 % Monocytes (%) (Auto) 6.2 0.0-12.0 % Eosinophils (%) (Auto) 3.2 0.0-7.0 % Basophils (%) (Auto) 0.5 0.0-2.0 % Neutrophils # (Auto) 9.8 H 1.6-8.6 10 ^3/uL Lymphocytes # (Auto) 1.7 0.4-5.4 10 ^3/uL Monocytes # (Auto) 0.8 0-1.3 10 ^3/uL Eosinophils # (Auto) 0.4 0-0.8 10 ^3/uL Basophils # (Auto) 0.1 0-0.2 10 ^3/uL Nucleated Red Blood Cells 0.0 % Test 07/30/24 05:29 Range/Units Blood Gas Specimen Type Arterial Blood Gas Sample Site Right radial Blood Gas Patient Temperature 37.0 Arterial Blood Date Drawn [id number] Arterial Blood pH 7.337 L 7.350-7.450 Arterial Blood Partial Pressure CO2 37.2 32.0-45.0 mmHg Arterial Blood Partial Pressure O2 72.6 L 83.0-108.0 mmHg Arterial Blood HCO3 19.5 L 21.0-28.0 mmol/L Arterial Blood Oxygen Saturation 94.6 94.0-98.0 % Arterial Blood Base Excess -5.6 L -2.0-3.0 mmol/L Arterial Blood Oxyhemoglobin 93.3 L 94.0-98.0 % Arterial Blood Carboxyhemoglobin 1.0 0.5-1.5 % Arterial Blood Methemoglobin 0.4 0.0-1.5 % Bruno Test Yes Blood Gas Total Hemoglobin 15.10 12.0-16.0 g/dL Blood Gas Modality Nasal cannula FiO2 % 28.0 Blood Gas Notified Time [id number] ORDERING PHYSICIAN: RICA KIM DO PROCEDURE(s): CXRP - CHEST PORTABLE REASON: sob ORDER NUMBER(s): [id number], ACCESSION NUMBER(s): [id number] CHEST RADIOGRAPH Indication: sob Technique: Single frontal view of the chest was obtained Comparison: CHEST PORTABLE on DOS: 06/26/22, CXRP on DOS: 06/26/22, CXR1 on DOS: 08/11/21 FINDINGS: Lines and Tubes: None Lungs: No focal consolidation. Slight increased pulmonary vascular congestion when compared to 06/26/2022 Pleura: No effusion. No pneumothorax. Cardiomediastinal contours: Unremarkable Bones: No acute osseous abnormality. IMPRESSION: 1. Slight increased pulmonary vascular congestion when compared to 06/25/2022. ATED BY: DARIEN BORREGO Jr., DO DICTATED DATE/TIME: 07/31/24 1640 SIGNED BY: DARIEN BORREGO Jr., SIGNED DATE/TIME: 07/31/24 1640 Assessment/Plan Assessment/Plan Acute hypoxic respiratory failure--patient's complaint of shortness of breath associated with malaise and cough x1 day Patient gave self two breathing treatments at home with no relief SpO2 91% in the ER No recent sick contact with family/friends or recent travel History of asthma The patient received Solu-Medrol, IV Lasix and DuoNeb treatment currently on BiPAP 100% Admit to telemetry unit for continuous monitoring Reviewed CBC which is normal Reviewed BMP with BG 173 and alkaline phosphate elevated BNP 44.65 Reviewed ABG as follows 7.33/37.2/72.6/19.5/5.6 on 100% FiO2 Continue to titrate FiO2 to keep SpO2 greater than 92% Reviewed COVID-19 which is negative Influenza a and B which are negative Reviewed chest x-ray which shows pulmonary vascular congestion IV Lasix daily IV Solu-Medrol daily DuoNeb q.4 hours Albuterol q.2h p.r.n. shortness of breath Chest x-ray and ABG q.a.m. May consider to consult sizing machine and drier operator if further evaluation and recommendation are needed ? PE D-dimer slightly elevated Echocardiogram pending--? Right heart strain DVT prophylaxis Lovenox Bilateral Doppler study pending ? Sepsis--initiated in the ER Elevated lactic acid and elevated heart rate greater than 90 IV ceftriaxone now and daily Elevated blood pressure Undiagnosed hypertension BP 180/103 Hydralazine 10 mg IV push q.6 p.r.n. SBP greater than 160 Morbid obesity Lipid panel pending Lifestyle modification Reconcile home meds DVT prophylaxis PUD prophylaxis not indicated no history of GERD Labs in a.m. Discussed plan of care with the patient and primary RN in which all questions concerns have been addressed Plan discussed with: Patient My Orders Orders - CRISTIANE DAVID [employer] Procedure Category Date Status Time Albuterol Medneb PHA 07/31/24 In Process (Ventolin Medneb) 17:45 Albuterol Medneb PHA 07/31/24 In Process (Ventolin Medneb) 18:00 Ipratropium Medneb PHA 07/31/24 In Process (Atrovent Medneb) 18:00 Methylprednisolone PHA 08/01/24 In Process Sod Succ (Solu Medrol 10:00 Hydralazine Injection PHA 07/31/24 In Process (Apresoline Inject 17:45 Furosemide Injection PHA 08/01/24 In Process (Lasix Injection) 10:00 Chest Portable XY 08/01/24 Verified 04:00 Montelukast Tablet PHA 08/01/24 In Process (Singulair Tablet) 10:00 Admit ADMIT 07/31/24 Transmitted 18:10 Ondansetron Hcl PHA 07/31/24 Logged (Zofran) 18:15 Enoxaparin Sodium PHA 08/01/24 Logged (Lovenox) 10:00 Complete Blood Count LAB 08/01/24 Verified 04:00 Echo 2d Mode Cardiac US 07/31/24 Logged DOP 18:10 Condition: Fair PRETTY 07/31/24 In Process 18:10 Acetaminophen Tablet PHA 07/31/24 Logged (Tylenol Tablet) 18:15 Clear Liq Diet DIET 07/31/24 Transmitted Dinner Bedrest With Bathroom PRETTY 07/31/24 In Process Privileg 18:10 Nitroglycerin PHA 07/31/24 Logged Sublingual (Ntrostat 18:15 Morphine Sulfate PHA 07/31/24 Logged Injection 18:15 Stat Ekg For Chest PRETTY 07/31/24 In Process Pain 18:10 Notify Md Of Changes PRETTY 07/31/24 In Process From Base 18:10 Yarn Dumper For PRETTY 07/31/24 In Process 24 Hours 18:10 Emergency Dysrhythmia PRETTY 07/31/24 In Process Protocol 18:10 Rhythm Strips Once [facility] 07/31/24 In Process Every Shift 18:10 Oxygen By Nasal RT 07/31/24 Transmitted Cannula 18:10 Ceftriaxone 1gm/50ml PHA 08/01/24 Logged D5w (Rocephin) 09:00 Abg W/ Co-Ox RT 08/01/24 Transmitted 04:00 Date of Service: Jul 31, 2024 Billing Provider: CRISTIANE DAVID Common Visit Codes: [id number] INP/OBS CARE (HIGH) CRISTIANE DAVIDP Jul 31, 2024 19:07
--- NOTE | 2024-07-31 19:14 | ECG ---
[facility] Test Date: 2024-07-31 Test Time: 16:22:11 Pat Name: SOLIS BERG Department: ED Room: [facility] [place] Gender: F Customer Consultant: johnathon : 1960 Requested By: RICA KIM Order Number: [id number] Reading MD: Favian Mcguire Measurements Intervals [place] Rate: 107 P: 86 OK: 164 QRS: 81 QRSD: 70 T: 88 QT: 337 QTc: 450 Interpretive Statements Sinus tachycardia Borderline right axis deviation Electronically Signed On 08-01-2024 16:12:43 PDT by Favian Mcguire Please click the below link to view image of tracing.
--- NOTE | 2024-07-31 19:47 | DVH ---
Bilateral lower extremity venous duplex Clinical History: dvt Comparison: None Technique: Duplex Doppler evaluation of the deep venous systems of both lower extremities from the common femora l veins to the popliteal veins including color Doppler and spectral/pulsed waveform analysis was perf ormed. Findings: RIGHT SIDE: The common femoral vein demonstrates appropriate compressibility and waveform variability. There is compressibility/patency of the great saphenous vein at the proximal thigh. The femoral vein demonstrates appropriate compressibility and waveform variability. The deep femoral vein demonstrates appropriate compressibility and waveform variability. The popliteal vein demonstrates appropriate compressibility and waveform variability. There is normal compressibility at the tibioperoneal trunk. LEFT SIDE: The common femoral vein demonstrates appropriate compressibility and waveform variability. There is compressibility/patency of the great saphenous vein at the proximal thigh. The femoral vein demonstrates appropriate compressibility and waveform variability. The deep femoral vein demonstrates appropriate compressibility and waveform variability. The popliteal vein demonstrates appropriate compressibility and waveform variability. There is normal compressibility at the tibioperoneal trunk. Impression: 1. No right or left femoropopliteal venous thrombosis.
[2024-07-31 20:17] VITALS: PULSE 95; RESP 21; O2SAT 100
[2024-07-31 20:39] VITALS: BP_SYST 123; BP_SYST 188; BP_DIAS 102; BP_DIAS 64; PULSE 101; PULSE 107; O2SAT 100; O2SAT 95
[2024-07-31 20:48] VITALS: BP 189/102; PULSE 101; RESP 21; TEMP 98.6; O2SAT 100
[2024-07-31] MEDS: LORazepam 2MG/ML-1ML VIAL IV ONE (21:33)
[2024-08-01] VITALS (21 sets, daily range): BP systolic 99–188; BP diastolic 48–102; PULSE 99–121; RESP 16–21; TEMP 97.4–98.5; O2SAT 97–100
[2024-08-01 06:07] LABS: Basophils # (auto) 0 10 ^3/uL (0-0.2); Basophils % (auto) 0.1 % (0.0-2.0); Eosinophils # (auto) 0 10 ^3/uL (0-0.8); Hematocrit 43.3 % (36.0-46.0); Hemoglobin 14.9 g/dL (12.2-16.2); Lymphocytes # (auto) 0.7 10 ^3/uL (0.4-5.4); Lymphocytes % (auto) 5.2 % (10.0-50.0); Mean Corpuscular Hemoglobin 30.4 pg (28.0-32.0); Mean Corpuscular Hgb Conc. 34.4 g/dL (32.0-36.0); Mean Corpuscular Volume 88.6 fL (80.0-100.0); Monocytes # (auto) 0.1 10 ^3/uL (0-1.3); Monocytes % (auto) 1.1 % (0.0-12.0); Neutrophils # (auto) 12.1 10 ^3/uL (1.6-8.6); Neutrophils % (auto) 93.6 % (37.0-80.0); Platelet Count (auto) 307 10^3/uL (140-450); Red Blood Cells 4.89 10^6/uL (4.0-5.20); Red Cell Distribution Width 13.7 % (11.8-14.3); White Blood Cell 12.9 10^3/uL (4.4-10.8)
--- NOTE | 2024-08-01 07:58 | DVH ---
XY CHEST PORTABLE, HISTORY: follow up congestion COMPARISON: XY CHEST PORTABLE on DOS: 07/31/24, CHEST PORTABLE on DOS: 06/26/22, CXRP on DOS: 06/26/22 XY CHEST PORTABLE on DOS: 07/31/24, CHEST PORTABLE on DOS: 06/26/22, CXRP on DOS: 06/26/22 TECHNICAL DATA: 1 view of the chest was obtained. FINDINGS: Lines and tubes: None Cardiomediastinal silhouette: prominent Pulmonary vasculature: prominent Lung expansion: normal Lung airspace: normal Lung interstitium: normal Pleura: normal Pneumothorax: no Bones: Unremarkable Other: no IMPRESSION: Mild pulmonary congestion.
[2024-08-01] MEDS ORDERED: IOHEXOL 350 MG/ML 100ML IJ ONE ×2 (08:58→13:37)
[2024-08-01 09:59] LABS: Base Excess -2.1 mmol/L (-2.0-3.0)
[2024-08-01] MEDS: MONTELUKAST SODIUM 10 MG TAB PO SCH (10:00)
[2024-08-01] MEDS: methylPREDNISolone SOD SUCC 40 MG/ML VL IV SCH (10:20)
[2024-08-01] MEDS: FUROSEMIDE 20 MG/2 ML VIAL IV SCH (10:21)
[2024-08-01] MEDS: cefTRIAXone 1GM/50ML D5W 50 ML IV SCH (10:21)
[2024-08-01] MEDS: ENOXAPARIN SOD 40 MG/0.4 ML SYRINGE SC SCH (10:21)
--- NOTE | 2024-08-01 13:55 | DVHPN2 ---
Reviewed: Care Plan, H&P, Labs, Medications, Previous Orders, Radiology Changes from previous H/P or p: No Changes Respiratory: Cough, Shortness of breath Objective Vitals Vital Signs Date Time Temp Pulse Resp B/P (MAP) Pulse Ox O2 Delivery O2 Flow Rate FiO2 08/01/24 10:33 104 98 Facial BiPAP Mask 40 08/01/24 10:21 146/78 08/01/24 09:00 98.5 21 98.5 08/01/24 03:18 60.0 Intake/Output Intake and Output 08/01/24 07:00 Intake Total 100 ml Balance 100 ml Intake Oral 0 ml IV Total 100 ml Medications Current Medications Medications Dose Ordered Sig/Rafi Route Start Time Stop Time Status Last Admin Dose Admin Albuterol 2.5 mg Q2HPRN PRN NEB 07/31/24 17:45 Albuterol 2.5 mg Q4HR NEB 07/31/24 18:00 08/01/24 10:33 2.5 MG Ipratropium [place] 0.5 mg Q4HR NEB 07/31/24 18:00 08/01/24 10:33 0.5 MG Methylprednisolone Sodium Succinate 40 mg DAILY IV 08/01/24 10:00 08/01/24 10:20 40 MG Hydralazine HCl 10 mg Q6HP PRN IV 07/31/24 17:45 Furosemide 20 mg DAILY IV 08/01/24 10:00 08/01/24 10:21 20 MG Montelukast Sodium 10 mg DAILY PO 08/01/24 10:00 Ondansetron HCl 4 mg Q4HP PRN IV 07/31/24 18:15 Enoxaparin Sodium 40 mg DAILY SC 08/01/24 10:00 08/01/24 10:21 40 MG Acetaminophen 650 mg Q6HP PRN PO 07/31/24 18:15 Nitroglycerin 0.4 mg Q5MINP PRN SL 07/31/24 18:15 Morphine Sulfate 2 mg Q30M PRN IV 07/31/24 18:15 Ceftriaxone Sodium 50 ml @ 100 mls/hr DAILY@09 IV 08/01/24 09:00 08/01/24 10:21 100 MLS/HR Laboratory Results Laboratory Tests 07/31/24 17:17 08/01/24 05:11 Chemistry Test 07/31/24 17:17 Albumin 4.4 g/dL (3.2-4.8) Calcium Level 9.3 mg/dL (8.7-10.4) Magnesium Level 1.9 mg/dL (1.6-2.6) Total Protein 6.9 g/dL (5.7-8.2) Coagulation Test 07/31/24 17:17 D-Dimer, Quantitative 0.54 mg/L FEU (0.0-0.49) H Lipid panel Test 07/31/24 17:17 Cholesterol Level 189 mg/dL (< 200) HDL Cholesterol 42 mg/dL (40-59) Triglycerides Level 327 mg/dL (< 150) H Cardiac Markers Test 07/31/24 17:17 B-Type Natriuretic Peptide 44.65 pg/mL (0-100) LFT Test 07/31/24 17:17 Alanine Aminotransferase (ALT) 32 U/L (7-40) Alkaline Phosphatase 118 U/L (46-116) H Aspartate Amino Transferase (AST) 28 U/L (13-40) Total Bilirubin 0.3 mg/dL (0.2-1.0) HgA1c, TSH Test 07/31/24 17:17 Thyroid Stimulating Hormone (TSH) 5.15 uIU/mL (0.55-4.78) H Urinalysis Test 07/31/24 16:29 Urine Color Colorless (Yellow) Urine Clarity Clear (Clear) Urine pH 5.5 (5.0-9.0) Urine Specific [place] 1.009 (1.001-1.035) Urine Protein Negative (Negative) Urine Ketones Negative (Negative) Urine Blood Negative /uL (Negative) Urine Nitrite Negative (Negative) Urine Bilirubin Negative (Negative) Urine Urobilinogen Normal mg/dL (Negative) Urine Leukocyte Esterase Negative /uL (Negative) Urine RBC <1 /hpf (0 - 4) Urine Microscopic WBC < 1 /HPF (0-5) Urine Squamous Epithelial Cells Few /hpf (<5) Urine Bacteria None seen /hpf (None Seen) Urine Glucose Normal mg/dL (Normal) Blood Gas Results Test 08/01/24 09:51 Arterial Blood pH 7.377 (7.350-7.450) FiO2 % 40.0 Labs and/or images reviewed: Labs reviewed by me, Image(s) reviewed by me Assessment/Plan Assessment/Plan Acute hypoxic Respiratory failure: Oxygen by Oxymizer Sepsis secondary to pneumonia Possible community-acquired pneumonia: Rocephin azithromycin Acute asthma exacerbation: Albuterol Atrovent Solu-Medrol Acute lactic acidosis DVT ruled out CT chest angiogram pending COVID negative Flu test negative Time spent 50 minutes Advanced care planning 20 minutes Patient is full code Plan discussed with: Patient Date of Service: Aug 01, 2024 Billing Provider: EUGENIE ALVAREZ MD Common Visit Codes: [id number] INP/OBS CARE(HIGH) Secondary Visit Codes: [id number] CARE PLAN 30 MINUTES EUGENIE ALVAREZ MD Aug 01, 2024 13:55
--- NOTE | 2024-08-01 14:09 | DVH ---
Procedure: CT CT ANGIO CHEST CONTRAST Reason for study/Clinical History: ELEVATED D-DIMER/SOB Comparison Study: None available at time of dictation. Exam Date: 08/01/2024 01:34 PM Radiation Dose Information: CT Dose: CTDI volume is 25 mGy. Dose-length product is 250 mGy*cm TECHNIQUE: After the uneventful administration of intravenous contrast intravenously, CT imaging was performed through the chest. Coronal and sagittal reformations were performed by the technologist. FINDINGS: Lower Neck: Visualized portions of the thyroid gland are unremarkable. Aorta and Vasculature: Normal caliber of thoracic aorta. Lymph Nodes: No enlarged intrathoracic lymph nodes. Mediastinum: Heart size is normal. There is no pericardial effusion. The esophagus is unremarkable. Lungs: No focal consolidation, pleural effusion or significant pneumothorax. No suspicious pulmonary nodule or mass. Musculoskeletal: No acute osseous abnormality. Upper abdomen: Limited portions of the upper abdomen are unremarkable. IMPRESSION: No evidence of acute intrathoracic abnormality identified. All CT scans at this medical facility are performed using dose modulation techniques as appropriate t o a performed exam including the following: Automated exposure control was utilized; adjustment of th e MA and/or KV according to patient size; and use of iterative reconstruction technique.
--- NOTE | 2024-08-01 14:49 | DVHSR ---
APPROVED REPORT EXAM: LIMITED Two-dimensional and M-mode echocardiogram with Doppler and color Doppler. Blood Pressure: 139/82 mmHg INDICATION ?CHF RISK FACTORS Obesity: Height: 5' 3", Weight: 204 DIMENSIONS LVDd3.3 (3.8-5.7cm)LA (2D)2.9 (1.9-4.0cm)Aortic Root (2.0-3.7cm) LVDs2.1 (2.5-4.0cm)LA (MM) (1.9-4.0cm)Aortic Cusp Exc (1.5-2.0cm) EF (%) 68.0 (55-70%)Rt. Atrium2.9 (1.9-4.0cm)Asc. Aorta cm Mitral Valve MitralMitral Stenosis E wave0.90m/sMV Mean GR.mmHg A wave1.00m/sMV Peak GR.mmHg E/A ratio0.92D MVAcm2 Aortic Valve Aortic ValveAortic Stenosis V12.00m/Kenna Mean GR.6mmHg V21.40m/Kenna Peak GR.8mmHg Other Information Quality : Technically LimitedRhythm : Technically limited study due to body habitus. Conclusion Technically difficult study. Difficult acoustic windows limited views obtained. From the limited views obtained there appears to be mild concentric LVH possibly left atrial enlargem ent. Valves are difficult to visualize. Left ventricular function is preserved. EF of 60% with normal RV function. Doppler is suboptimal. No pericardial effusion masses or vegetations.
[2024-08-02] VITALS (15 sets, daily range): BP systolic 110–149; BP diastolic 62–88; PULSE 82–116; RESP 17–20; TEMP 97.9–98.1; O2SAT 95–100
--- NOTE | 2024-08-02 12:23 | DVHPN2 ---
Reviewed: Care Plan, H&P, Labs, Medications, Previous Orders, Radiology Changes from previous H/P or p: No Changes Respiratory: Cough, Shortness of breath Objective Vitals Vital Signs Date Time Temp Pulse Resp B/P (MAP) Pulse Ox O2 Delivery O2 Flow Rate FiO2 08/02/24 10:54 83 18 100 08/02/24 10:46 Oxymizer 4.0 08/02/24 10:46 N/A 08/02/24 09:00 98.0 110/62 (78) 98.0 Intake/Output Intake and Output 08/02/24 07:00 Intake Total 722 ml Output Total 875 ml Balance -153 ml Intake Oral 672 ml IV Total 50 ml Output Urine Total 875 ml Medications Current Medications Medications Dose Ordered Sig/Rafi Route Start Time Stop Time Status Last Admin Dose Admin Albuterol 2.5 mg Q2HPRN PRN NEB 07/31/24 17:45 Albuterol 2.5 mg Q4HR NEB 07/31/24 18:00 08/02/24 10:46 2.5 MG Ipratropium [place] 0.5 mg Q4HR NEB 07/31/24 18:00 08/02/24 10:46 0.5 MG Methylprednisolone Sodium Succinate 40 mg DAILY IV 08/01/24 10:00 08/01/24 10:20 40 MG Hydralazine HCl 10 mg Q6HP PRN IV 07/31/24 17:45 Furosemide 20 mg DAILY IV 08/01/24 10:00 08/01/24 10:21 20 MG Montelukast Sodium 10 mg DAILY PO 08/01/24 10:00 Ondansetron HCl 4 mg Q4HP PRN IV 07/31/24 18:15 Enoxaparin Sodium 40 mg DAILY SC 08/01/24 10:00 08/02/24 08:43 40 MG Acetaminophen 650 mg Q6HP PRN PO 07/31/24 18:15 Nitroglycerin 0.4 mg Q5MINP PRN SL 07/31/24 18:15 Morphine Sulfate 2 mg Q30M PRN IV 07/31/24 18:15 Ceftriaxone Sodium 50 ml @ 100 mls/hr DAILY@09 IV 08/01/24 09:00 08/01/24 10:21 100 MLS/HR Laboratory Results Laboratory Tests 07/31/24 17:17 08/01/24 05:11 Urinalysis Test 07/31/24 16:29 Urine Color Colorless (Yellow) Urine Clarity Clear (Clear) Urine pH 5.5 (5.0-9.0) Urine Specific [place] 1.009 (1.001-1.035) Urine Protein Negative (Negative) Urine Ketones Negative (Negative) Urine Blood Negative /uL (Negative) Urine Nitrite Negative (Negative) Urine Bilirubin Negative (Negative) Urine Urobilinogen Normal mg/dL (Negative) Urine Leukocyte Esterase Negative /uL (Negative) Urine RBC <1 /hpf (0 - 4) Urine Microscopic WBC < 1 /HPF (0-5) Urine Squamous Epithelial Cells Few /hpf (<5) Urine Bacteria None seen /hpf (None Seen) Urine Glucose Normal mg/dL (Normal) Microbiology Microbiology Date/Time Source Procedure Growth Status 07/31/24 18:47 Blood Blood Culture - Preliminary NO GROWTH AFTER 24 HOURS OF INCUBATION. Resulted Labs and/or images reviewed: Labs reviewed by me, Image(s) reviewed by me Assessment/Plan Assessment/Plan Acute hypoxic Respiratory failure: Oxygen by Oxymizer Sepsis secondary to pneumonia Possible community-acquired pneumonia: Rocephin azithromycin Acute asthma exacerbation: Albuterol Atrovent Solu-Medrol Acute lactic acidosis DVT ruled out CT chest angiogram pending COVID negative Flu test negative Time spent 50 minutes Advanced care planning 20 minutes Patient is full code Plan discussed with: Patient My Orders Orders - EUGENIE ALVAREZ MD Procedure Category Date Status Time Insert Midline ORDERS 08/02/24 Transmitted 09:59 Date of Service: Aug 02, 2024 Billing Provider: EUGENIE ALVAREZ MD Common Visit Codes: [id number] INP/OBS CARE(HIGH) EUGENIE ALVAREZ MD Aug 02, 2024 12:23
[2024-08-02] MEDS: AZITHROMYCIN 500MG/ 250ML 250 ML IV ONE (14:04)
[2024-08-03] VITALS (16 sets, daily range): BP systolic 109–144; BP diastolic 62–84; PULSE 69–107; RESP 16–20; TEMP 97.6–98.7; O2SAT 93–100
[2024-08-03] MEDS: AZITHROMYCIN 500MG/ 250ML 250 ML IV SCH (10:15)
--- NOTE | 2024-08-03 10:39 | DVHPN2 ---
Reviewed: Care Plan, H&P, Labs, Medications, Previous Orders, Radiology Changes from previous H/P or p: No Changes Respiratory: Cough, Shortness of breath Objective Vitals Vital Signs Date Time Temp Pulse Resp B/P (MAP) Pulse Ox O2 Delivery O2 Flow Rate FiO2 08/03/24 10:31 102 18 96 08/03/24 09:14 144/77 08/03/24 08:00 Nasal Cannula* 3 32 08/03/24 05:00 98.3 98.3 Intake/Output Intake and Output 08/03/24 07:00 Intake Total 1800 ml Output Total 2150 ml Balance -350 ml Intake Oral 1500 ml IV Total 300 ml Output Urine Total 2150 ml Medications Current Medications Medications Dose Ordered Sig/Rafi Route Start Time Stop Time Status Last Admin Dose Admin Albuterol 2.5 mg Q2HPRN PRN NEB 07/31/24 17:45 Albuterol 2.5 mg Q4HR NEB 07/31/24 18:00 08/03/24 10:31 2.5 MG Ipratropium [place] 0.5 mg Q4HR NEB 07/31/24 18:00 08/03/24 10:31 0.5 MG Methylprednisolone Sodium Succinate 40 mg DAILY IV 08/01/24 10:00 08/03/24 09:14 40 MG Hydralazine HCl 10 mg Q6HP PRN IV 07/31/24 17:45 Furosemide 20 mg DAILY IV 08/01/24 10:00 08/03/24 09:14 20 MG Montelukast Sodium 10 mg DAILY PO 08/01/24 10:00 08/03/24 09:13 10 MG Ondansetron HCl 4 mg Q4HP PRN IV 07/31/24 18:15 Enoxaparin Sodium 40 mg DAILY SC 08/01/24 10:00 08/03/24 09:14 40 MG Acetaminophen 650 mg Q6HP PRN PO 07/31/24 18:15 Nitroglycerin 0.4 mg Q5MINP PRN SL 07/31/24 18:15 Morphine Sulfate 2 mg Q30M PRN IV 07/31/24 18:15 Ceftriaxone Sodium 50 ml @ 100 mls/hr DAILY@09 IV 08/01/24 09:00 08/03/24 09:13 100 MLS/HR Azithromycin 250 ml @ 125 mls/hr DAILY IV 08/03/24 10:00 08/03/24 10:15 125 MLS/HR Laboratory Results Laboratory Tests 07/31/24 17:17 08/01/24 05:11 Urinalysis Test 07/31/24 16:29 Urine Color Colorless (Yellow) Urine Clarity Clear (Clear) Urine pH 5.5 (5.0-9.0) Urine Specific [place] 1.009 (1.001-1.035) Urine Protein Negative (Negative) Urine Ketones Negative (Negative) Urine Blood Negative /uL (Negative) Urine Nitrite Negative (Negative) Urine Bilirubin Negative (Negative) Urine Urobilinogen Normal mg/dL (Negative) Urine Leukocyte Esterase Negative /uL (Negative) Urine RBC <1 /hpf (0 - 4) Urine Microscopic WBC < 1 /HPF (0-5) Urine Squamous Epithelial Cells Few /hpf (<5) Urine Bacteria None seen /hpf (None Seen) Urine Glucose Normal mg/dL (Normal) Microbiology Microbiology Date/Time Source Procedure Growth Status 07/31/24 18:47 Blood Blood Culture - Preliminary NO GROWTH AFTER 48 HOURS OF INCUBATION. Resulted Labs and/or images reviewed: Labs reviewed by me, Image(s) reviewed by me Assessment/Plan Assessment/Plan Acute hypoxic Respiratory failure: Oxygen by Oxymizer Sepsis secondary to pneumonia Possible community-acquired pneumonia: Rocephin azithromycin Acute asthma exacerbation: Albuterol Atrovent Solu-Medrol Acute lactic acidosis DVT ruled out PE ruled out COVID negative Flu test negative Time spent 50 minutes Advanced care planning 20 minutes Patient is full code DC tomorrow okay with the patient Plan discussed with: Patient My Orders Orders - EUGENIE ALVAREZ MD Procedure Category Date Status Time Azithromycin 500mg/ PHA 08/03/24 In Process 250ml (Zithromax 50 10:00 Date of Service: Aug 03, 2024 Billing Provider: EUGENIE ALVAREZ MD Common Visit Codes: [id number] INP/OBS CARE(HIGH) EUGENIE ALVAREZ MD Aug 03, 2024 10:39
[2024-08-03] MEDS: ACETAMINOPHEN 325 MG TAB PO PRN (18:01)
[2024-08-04] VITALS (10 sets, daily range): BP systolic 130–153; BP diastolic 79–89; PULSE 85–105; RESP 16–20; TEMP 36.6; O2SAT 93–100
[2024-08-04] MEDS ORDERED: AZIT500T66 PO (10:48)
[2024-08-04] MEDS ORDERED: METH4PAK PO (10:48)
[2024-08-04] MEDS ORDERED: ALBUAER3 IN (10:48)
--- NOTE | 2024-08-04 10:49 | DVHPN2 ---
Reviewed: Care Plan, H&P, Labs, Medications, Previous Orders, Radiology Changes from previous H/P or p: No Changes Respiratory: Cough, Shortness of breath Objective Vitals Vital Signs Date Time Temp Pulse Resp B/P (MAP) Pulse Ox O2 Delivery O2 Flow Rate FiO2 08/04/24 09:16 95 Room Air* 0 21 08/04/24 09:03 139/89 08/04/24 08:56 97.8 87 18 97.8 Intake/Output Intake and Output 08/04/24 07:00 Intake Total 1850 ml Output Total 500 ml Balance 1350 ml Intake Oral 1550 ml IV Total 300 ml Output Urine Total 500 ml # Voids 4 Medications Current Medications Medications Dose Ordered Sig/Rafi Route Start Time Stop Time Status Last Admin Dose Admin Albuterol 2.5 mg Q2HPRN PRN NEB 07/31/24 17:45 Albuterol 2.5 mg Q4HR NEB 07/31/24 18:00 08/04/24 02:00 2.5 MG Ipratropium [place] 0.5 mg Q4HR NEB 07/31/24 18:00 08/04/24 02:00 0.5 MG Methylprednisolone Sodium Succinate 40 mg DAILY IV 08/01/24 10:00 08/04/24 09:04 40 MG Hydralazine HCl 10 mg Q6HP PRN IV 07/31/24 17:45 Furosemide 20 mg DAILY IV 08/01/24 10:00 08/04/24 09:03 20 MG Montelukast Sodium 10 mg DAILY PO 08/01/24 10:00 08/04/24 09:04 10 MG Ondansetron HCl 4 mg Q4HP PRN IV 07/31/24 18:15 Enoxaparin Sodium 40 mg DAILY SC 08/01/24 10:00 08/04/24 09:04 40 MG Acetaminophen 650 mg Q6HP PRN PO 07/31/24 18:15 08/03/24 18:01 650 MG Nitroglycerin 0.4 mg Q5MINP PRN SL 07/31/24 18:15 Morphine Sulfate 2 mg Q30M PRN IV 07/31/24 18:15 Ceftriaxone Sodium 50 ml @ 100 mls/hr DAILY@09 IV 08/01/24 09:00 08/04/24 09:03 100 MLS/HR Azithromycin 250 ml @ 125 mls/hr DAILY IV 08/03/24 10:00 08/03/24 10:15 125 MLS/HR Laboratory Results Laboratory Tests 07/31/24 17:17 08/01/24 05:11 Urinalysis Test 07/31/24 16:29 Urine Color Colorless (Yellow) Urine Clarity Clear (Clear) Urine pH 5.5 (5.0-9.0) Urine Specific [place] 1.009 (1.001-1.035) Urine Protein Negative (Negative) Urine Ketones Negative (Negative) Urine Blood Negative /uL (Negative) Urine Nitrite Negative (Negative) Urine Bilirubin Negative (Negative) Urine Urobilinogen Normal mg/dL (Negative) Urine Leukocyte Esterase Negative /uL (Negative) Urine RBC <1 /hpf (0 - 4) Urine Microscopic WBC < 1 /HPF (0-5) Urine Squamous Epithelial Cells Few /hpf (<5) Urine Bacteria None seen /hpf (None Seen) Urine Glucose Normal mg/dL (Normal) Microbiology Microbiology Date/Time Source Procedure Growth Status 07/31/24 18:47 Blood Blood Culture - Preliminary NO GROWTH AFTER 72 HOURS OF INCUBATION. Resulted Labs and/or images reviewed: Labs reviewed by me, Image(s) reviewed by me Assessment/Plan Assessment/Plan Acute hypoxic Respiratory failure: Oxygen by Oxymizer Sepsis secondary to pneumonia Possible community-acquired pneumonia: Rocephin azithromycin Acute asthma exacerbation: Albuterol Atrovent Solu-Medrol Acute lactic acidosis DVT ruled out PE ruled out COVID negative Flu test negative Time spent 50 minutes Advanced care planning 20 minutes Patient is full code Patient on room air Plan discussed with: Patient My Orders Orders - EUGENIE ALVAREZ MD Procedure Category Date Status Time Regular Diet DIET 08/03/24 Transmitted Lunch Discontinue [place] PRETTY 08/03/24 In Process Catheter 10:49 Date of Service: Aug 04, 2024 Billing Provider: EUGENIE ALVAREZ MD Common Visit Codes: [id number] INP/OBS CARE(HIGH) EUGENIE ALVAREZ MD Aug 04, 2024 10:49
--- NOTE | 2024-08-04 10:52 | DVHDS2 ---
Discharge Summary Date of Admission Jul 31, 2024 at 19:05 Date of Discharge: Aug 04, 2024 Admitting Diagnosis Shortness of breath Wounds: none Labs/Diagnostic Data: Laboratory Results Test 08/01/24 09:51 08/01/24 05:11 07/31/24 20:47 07/31/24 18:47 Blood Gas Specimen Type Arterial Blood Gas Sample Site Right radial Blood Gas Patient Temperature 37.0 Arterial Blood Date Drawn [id number] Arterial Blood pH 7.377 (7.350-7.450) Arterial Blood Partial Pressure CO2 39.8 mmHg (32.0-45.0) Arterial Blood Partial Pressure O2 89.3 mmHg (83.0-108.0) Arterial Blood HCO3 22.9 mmol/L (21.0-28.0) Arterial Blood Oxygen Saturation 96.8 % (94.0-98.0) Arterial Blood Base Excess -2.1 mmol/L (-2.0-3.0) Arterial Blood Oxyhemoglobin 96.0 % (94.0-98.0) Arterial Blood Carboxyhemoglobin 0.4 % (0.5-1.5) Arterial Blood Methemoglobin 0.4 % (0.0-1.5) Bruno Test Yes Blood Gas Total Hemoglobin 15.00 g/dL (12.0-16.0) Blood Gas Set Respiration Rate 12.0 Blood Gas Modality Mask - bipap FiO2 % 40.0 Blood Gas EPAP 6 Blood Gas IPAP 12 White Blood Count 12.9 10^3/uL (4.4-10.8) Red Blood Count 4.89 10^6/uL (4.0-5.20) Hemoglobin 14.9 g/dL (12.2-16.2) Hematocrit 43.3 % (36.0-46.0) Mean Corpuscular Volume 88.6 fL (80.0-100.0) Mean Corpuscular Hemoglobin 30.4 pg (28.0-32.0) Mean Corpuscular Hemoglobin Concent 34.4 g/dL (32.0-36.0) Red Cell Distribution Width 13.7 % (11.8-14.3) Platelet Count 307 10^3/uL (140-450) Mean Platelet Volume 8.3 fL (6.9-10.8) Neutrophils (%) (Auto) 93.6 % (37.0-80.0) Lymphocytes (%) (Auto) 5.2 % (10.0-50.0) Monocytes (%) (Auto) 1.1 % (0.0-12.0) Eosinophils (%) (Auto) 0.0 % (0.0-7.0) Basophils (%) (Auto) 0.1 % (0.0-2.0) Neutrophils # (Auto) 12.1 10 ^3/uL (1.6-8.6) Lymphocytes # (Auto) 0.7 10 ^3/uL (0.4-5.4) Monocytes # (Auto) 0.1 10 ^3/uL (0-1.3) Eosinophils # (Auto) 0 10 ^3/uL (0-0.8) Basophils # (Auto) 0 10 ^3/uL (0-0.2) Nucleated Red Blood Cells 0.0 % Troponin I High Sensitivity 4 ng/L (</=34) Lactic Acid Level 4.3 mmol/L (0.4-2.0) Test 07/31/24 17:17 07/31/24 17:00 07/31/24 16:29 07/30/24 05:29 D-Dimer, Quantitative 0.54 mg/L FEU (0.0-0.49) Sodium Level 144 mmol/L (136-145) Potassium Level 3.8 mmol/L (3.5-5.1) Chloride Level 109 mmol/L (98-107) Carbon Dioxide Level 25 mmol/L (20-31) Anion Gap 10 (5-15) Blood Urea Nitrogen 8 mg/dL (9-23) Creatinine 0.91 mg/dL (0.550-1.02) Glomerular Filtration Rate Calc 71 mL/min (>90) BUN/Creatinine Ratio 8.8 (10.0-20.0) Serum Glucose 173 mg/dL (74-106) Calcium Level 9.3 mg/dL (8.7-10.4) Magnesium Level 1.9 mg/dL (1.6-2.6) Total Bilirubin 0.3 mg/dL (0.2-1.0) Aspartate Amino Transferase (AST) 28 U/L (13-40) Alanine Aminotransferase (ALT) 32 U/L (7-40) Alkaline Phosphatase 118 U/L (46-116) B-Type Natriuretic Peptide 44.65 pg/mL (0-100) Total Protein 6.9 g/dL (5.7-8.2) Albumin 4.4 g/dL (3.2-4.8) Triglycerides Level 327 mg/dL (< 150) Cholesterol Level 189 mg/dL (< 200) LDL Cholesterol 115 mg/dL (< 100) HDL Cholesterol 42 mg/dL (40-59) Thyroid Stimulating Hormone (TSH) 5.15 uIU/mL (0.55-4.78) Influenza Type A Antigen Negative (Negative) Influenza Type B Antigen Negative (Negative) SARS-CoV-2 Antigen (Rapid) Negative (NEGATIVE) Urine Color Colorless (Yellow) Urine Clarity Clear (Clear) Urine pH 5.5 (5.0-9.0) Urine Specific [place] 1.009 (1.001-1.035) Urine Protein Negative (Negative) Urine Ketones Negative (Negative) Urine Blood Negative /uL (Negative) Urine Nitrite Negative (Negative) Urine Bilirubin Negative (Negative) Urine Urobilinogen Normal mg/dL (Negative) Urine Leukocyte Esterase Negative /uL (Negative) Urine RBC <1 /hpf (0 - 4) Urine Microscopic WBC < 1 /HPF (0-5) Urine Squamous Epithelial Cells Few /hpf (<5) Urine Bacteria None seen /hpf (None Seen) Urine Glucose Normal mg/dL (Normal) Blood Gas Notified Time [id number] Other Laboratory Tests 08/01/24 05:11 07/31/24 17:17 Brief Hx & Hospital Course: 64-year-old female with a history of asthma admitted for asthma exacerbation found to have acute respiratory failure treated with the oxygen community- acquired pneumonia treated with Rocephin azithromycin albuterol Atrovent Solu- Medrol COVID test negative flu test negative DVT ruled out PE ruled out. At the time of discharge patient is afebrile on room air stable vital signs discharged home on azithromycin Medrol Dosepak and Ventolin MDI. He will follow up with her primary Dr Dr. Stein [facility] Consults/Reason for consult None Operations or Procedures None Condition at Discharge: Fair Final Diagnosis/Problems List Acute hypoxic Respiratory failure: Oxygen by Oxymizer Sepsis secondary to pneumonia Possible community-acquired pneumonia: Rocephin azithromycin Acute asthma exacerbation: Albuterol Atrovent Solu-Medrol Acute lactic acidosis DVT ruled out PE ruled out COVID negative Flu test negative Discharge Disposition: Home Discharge Instruct/Medications Diet: Cardiac 2g Na,low cholest Activity: Light activity Follow Up/Referral: Follow up With your primary Dr Dr. Toure [facility] Medications: Azithromycin Medrol Dosepak Deidre NGUYEN Transmitted to pharmacy 39 (Time taken for discharge summary 39 minutes) Discharge Statement: "Patient was advised to return to the ER or call 911 if any headaches, dizziness, shortness of breath, chest pain, abdominal pain, bleeding, fevers, or worsening of medical condition. Patient was counseled about treatment plan, medications, possible side effects, patientverbalized understanding. All questions were answered to the best of my ability. This discharge took greater then 30 minutes in planning, reviewing documentation, counseling the patient, and discussing with other team members." ASSESSMENT ASSESSMENT Hospital Course Improved Assessment Acute hypoxic Respiratory failure: Oxygen by Oxymizer Sepsis secondary to pneumonia Possible community-acquired pneumonia: Rocephin azithromycin Acute asthma exacerbation: Albuterol Atrovent Solu-Medrol Acute lactic acidosis DVT ruled out PE ruled out COVID negative Flu test negative Date of Service: Aug 04, 2024 Billing Provider: EUGENIE ALVAREZ MD Common Visit Codes: [id number] INP/OBS CARE(HIGH) EUGENIE ALVAREZ MD Aug 04, 2024 10:52
== END 2024-08-04 13:55 | disposition home or self-care (01) | DRG 720 ==
LOC: ER 16:09 → EDUNIT# 16:09 → EDBD 16:09 → OVERFLOW 19:05 → TELE-WESTW 23:52
PROVIDERS: ADMIT Family Medicine; ATTEND Family Medicine
PROC: 5A09357 Assistance with Respiratory Ventilation, Less than 24 Consecutive Hours, Continuous Positive Airway Pressure (ICD-10-PCS; principal; 2024-07-31)
PROC: 5A09357 Assistance with Respiratory Ventilation, Less than 24 Consecutive Hours, Continuous Positive Airway Pressure (ICD-10-PCS; 2024-08-01)
DX: A41.9 Sepsis, unspecified organism (principal); J96.01 Acute respiratory failure with hypoxia; J15.69 Pneumonia due to other Gram-negative bacteria; E87.21 Acute metabolic acidosis; J15.9 Unspecified bacterial pneumonia; J44.0 Chronic obstructive pulmonary disease with (acute) lower respiratory infection; J45.901 Unspecified asthma with (acute) exacerbation; E66.01 Morbid (severe) obesity due to excess calories; E78.5 Hyperlipidemia, unspecified; E07.9 Disorder of thyroid, unspecified; Z20.822 Contact with and (suspected) exposure to COVID-19; R79.89 Other specified abnormal findings of blood chemistry; Z68.36 Body mass index [BMI] 36.0-36.9, adult
CPT/HCPCS: 36415; 36600; 71045; 71275; 80053; 80061; 81001; 82805; 83605; 83735; 83880; 84443; 84484; 85025; 85379; 87040; 87426; 87804; 93005; 93306; 93970; 94640; 94660; 96365; 96375; 99291; G0378